=== PATIENT | female | born 1970 | race Caucasian/White ===

== ENCOUNTER 2023-12-31 07:34 | Outpatient (AMB) | payer OTHER, SELFPAY ==
--- NOTE | 2023-12-31 07:42 | MHC.PC.OV ---
Vital Signs 12/31/23 07:50 Height 5 ft 2 in Weight 198 lb BMI 36.2 BP 124/80 Blood Pressure Location Lt brachial Position Sitting Pulse 77 Pulse Source Pulse Oximeter Pulse Oximetry (%) 99 Oxygen Delivery Method Room Air Intake Visit Reasons: New patient-est care/menopause Intake Note: Pt is here today to est care Allergies No Known Allergies [No Known Allergies*] Allergy (Unverified 12/31/23 07:46) Medication List - Last Reconciled 12/31/23 by Melissa Carrasco MD cholecalciferol (vitamin D3) 50 mcg PO DAILY citalopram 20 mg PO DAILY levothyroxine 75 mcg PO DAILY multivitamin 1 tab PO DAILY ustekinumab (Stelara) 90 mg subcut Q8W Tobacco use date assessed: 12/31/23 Dental Screening Dental Screen Date: 12/31/23 Did you have a dental visit in the last 12 months?: Yes Did you have a dental problem in the last 6 months where you did not have access to dental care?: No Was dental information given to patient?: Patient has dentist HPI New patient-est care/menopause HPI Details Pt presents for [employer] PE. Pt c/o chronic R lateral thigh pain and LBP for 1 year the pain is worse when patient is trying to walk and she stopped exercising a year ago. Patient denies any injury. Past medical history includes hypothyroidism and chronic depression and autism. She is established with psychiatric prescriber. Patient follows up with the GI for a history of ulcerative colitis controlled on Stelara. [facility] Social History (Updated 12/31/23 @ 09:27 by Melissa Carrasco MD) Household Members Other:: no children disabled works part-time Housing: House Patient Tobacco Use Status: Never used Tobacco e-Cigarette/Vaping Use: Never Used service: No Current occupational status: employed Cognitive needs: No Hearing needs: No Vision needs: Yes Questionnaire PHQ-9 Over the last 2 weeks, how often have you been bothered by any of the following problems? 1. Little interest or pleasure in doing things: not at all 2. Feeling down, depressed, or hopeless: not at all 3. Trouble falling or staying asleep, or sleeping too much: not at all 4. Feeling tired or having little energy: not at all 5. Poor appetite or overeating: not at all 6. Feeling bad about yourself - or that you are a failure or have let yourself or your family down: not at all 7. Trouble concentrating on things, such as reading the newspaper or watching television: not at all 8. Moving or speaking so slowly that other people could have noticed. Or the opposite - being so fidgety or restless that you have been moving around a lot more than usual: not at all 9. Thoughts that you would be better off or of hurting yourself in some way: not at all Total score: 0 Depression Screening Interpretation: Negative Depression Screening Done: Yes 89212 - PHQ-9 Billing: Yes Source: Developed by Drs. Ernie Pereira, Brittni Johnson, Donny Kc and colleagues, with an educational javi from [employer]. Thrive Questionnaire Date Thrive assessed: 12/31/23 I am a: Patient What is your living situation today?: I have a steady place to live Within the past 12 months, did the food you bought not last and you didn't have the money to get more?: Never true Within the past 12 months, did you worry whether your food would run out before you got money to buy more?: Never true Do you have trouble paying for medicines?: No Do you have trouble getting transportation to medical appointments?: No Do you have trouble paying your heating and electricity bill?: No Do you have trouble taking care of your child, family member or friend?: No Do you have trouble with day-to-day activities such as bathing, preparing meals, shopping, managing finances, etc.?: No Are you currently unemployed and looking for a job?: No Are you interested in more education?: No THRIVE Score: 0 AUDIT C Alcohol Use Questionnaire (AUDIT-C) 1. How often do you have a drink containing alcohol?: Monthly or less 2. How many drinks containing alcohol do you have on a typical day when you are drinking?: 1 or 2 3. How often do you have six or more drinks on one occasion?: Never Total Score: 1 MUNDO-7 AMB Questionnaire MUNDO-7 Date MUNDO - 7 assessed: 12/31/23 Feeling nervous, anxious, or on edge: 0 = Not at all Not being able to stop or control worryin = Not at all Worrying too much about different things: 0 = Not at all Trouble relaxin = Not at all Being so restless that it is hard to sit still: 0 = Not at all Becoming easily annoyed or irritable: 0 = Not at all Feeling afraid as if something awful might happen: 0 = Not at all Total MUNDO-7 score (0-4 normal; 5-9 mild; 10-14 moderate; 15-21 severe): 0 Source: Developed by Drs. Ernie Pereira, Brittni Johnson, Donny Kc and colleagues, with an educational javi from [employer]. Review of Systems Const All systems reviewed & are unremarkable except as noted in HPI and below Reports no additional complaints Eyes Reports no additional complaints ENT Reports no additional complaints Card Reports no additional complaints Resp Reports no additional complaints GI Reports no additional complaints Reports no additional complaints Physical exam (Primary Care) Vital Signs: Last Vital Signs Pulse 77 12/31/23 07:50 BP 124/90 H 12/31/23 07:50 Pulse Ox 99 12/31/23 07:50 Oxygen Delivery Method Room Air 12/31/23 07:50 BMI result Body Mass Index 36.2 Tobacco/Smoking Status: Tobacco use Status Tobacco use date assessed 12/31/23 12/31/23 07:52 Patient Tobacco Use Status Never used Tobacco 12/31/23 07:52 e-Cigarette/Vaping Use Never Used 12/31/23 07:52 PHQ-9: PHQ-9 Score PHQ-9: Total score 0 12/31/23 07:53 Depression Screening Interpretation: Negative Thrive Assessment: Date of Thrive Assessment Date Thrive assessed 12/31/23 12/31/23 07:53 Const General: no acute distress HENMT Head: Yes normal to inspection Ears: hearing grossly normal bilaterally General nose exam: Normal external nose present Face and sinus: Yes normal facial exam Mouth: Normal oral and palatal mucosa present Throat: Yes posterior oropharynx normal Eyes General: appearance normal, both eyes and all related structures Neck Neck: Yes no lymphadenopathy and Yes supple Resp Effort & Inspection: normal respiratory effort Auscultation: clear to auscultation bilaterally Cardio Rhythm: regular rhythm Heart sounds: S1 normal heart sound present and S2 normal heart sound present Extrem Other: There is reproducible tenderness in the right trochanteric area, decreased range of motion of the right hip, straight leg rising 90 degrees bilaterally, deep tendon reflexes 2+ bilaterally Assessment and Plan Assessment & Plan (1) Annual physical exam: Code(s): Z00.00 - Encounter for general adult medical examination without abnormal findings Plan: Well-balanced diet regular exercise weight loss discussed with the patient. She will call [facility] to schedule mammogram. She is established with GI and will have a colonoscopy this year (2) Hx of colonoscopy: Comment: 2020 normal, needs q 3 yrs GI in [facility] for UC Code(s): Z98.890 - Other specified postprocedural states (3) Ulcerative colitis: Comment: Controlled on Stelara Code(s): K51.90 - Ulcerative colitis, unspecified, without complications (4) Hx of screening mammography: Comment: Veronique Code(s): Z92.89 - Personal history of other medical treatment Plan: Patient will schedule an appointment at [facility] (5) Right hip pain: Code(s): M25.551 - Pain in right hip (6) Hypothyroidism: Code(s): E03.9 - Hypothyroidism, unspecified Plan: Continue levothyroxine patient will return for fasting labs including TSH (7) Right hip pain: Code(s): M25.551 - Pain in right hip Plan: For chronic right hip pain x-ray will be obtained. patient will be referred for cortisone injection for right trochanteric bursitis to orthopedic surgeon and we will start physical therapy. Follow-up in 2 (8) Normal pelvic exam: Comment: 2022 negative pap Code(s): Z01.419 - Encounter for gynecological examination (general) (routine) without abnormal findings Orders: Orders Vitamin D 25-OH Total Today E03.9 - Hypothyroidism, unspecified, K51.90 - Ulcerative colitis, unspecified, without complications, Z00.00 - Encounter for general adult medical examination without abnormal findings Vitamin B12 and Folate Today E03.9 - Hypothyroidism, unspecified, K51.90 - Ulcerative colitis, unspecified, without complications, Z00.00 - Encounter for general adult medical examination without abnormal findings MM screening mammo BI Today Z12.31 - Encounter for screening mammogram for malignant neoplasm of breast XR hip RT w PEL1V Today M25.551 - Pain in right hip Comprehensive [place]. Panel Fast Today E03.9 - Hypothyroidism, unspecified, K51.90 - Ulcerative colitis, unspecified, without complications, Z00.00 - Encounter for general adult medical examination without abnormal findings Complete Blood Count Auto Diff Today E03.9 - Hypothyroidism, unspecified, K51.90 - Ulcerative colitis, unspecified, without complications, Z00.00 - Encounter for general adult medical examination without abnormal findings TSH reflex Free T4 Today E03.9 - Hypothyroidism, unspecified, K51.90 - Ulcerative colitis, unspecified, without complications, Z00.00 - Encounter for general adult medical examination without abnormal findings Lipid Panel Today E03.9 - Hypothyroidism, unspecified, K51.90 - Ulcerative colitis, unspecified, without complications, Z00.00 - Encounter for general adult medical examination without abnormal findings PT Evaluation and Treatment Today M25.551 - Pain in right hip Referrals Orthopedics Referral M25.551 - Pain in right hip Coding Level of Care Code New Pt Prev Care 40-64y(05171) Diagnoses Annual physical exam Z00.00 Hx of colonoscopy Z98.890 Ulcerative colitis K51.90 Hx of screening mammography Z92.89 Right hip pain M25.551 Hypothyroidism E03.9 Normal pelvic exam Z01.419
[2023-12-31 07:50] VITALS: BP 124/80; PULSE 77; O2SAT 99; BMI 36.2
== END 2023-12-31 08:50 | disposition home or self-care (01) ==
PROVIDERS: PCP Internal Medicine; Visit Provider Internal Medicine
DX: Z00.00 Encounter for general adult medical examination without abnormal findings (principal); Z98.890 Other specified postprocedural states; K51.90 Ulcerative colitis, unspecified, without complications; Z92.89 Personal history of other medical treatment; M25.551 Pain in right hip; E03.9 Hypothyroidism, unspecified; Z01.419 Encounter for gynecological examination (general) (routine) without abnormal findings
CPT/HCPCS: 99386

== ENCOUNTER 2024-01-06 07:39 | Outpatient (REF) | payer OTHER, SELFPAY ==
[2024-01-06 10:31] LABS: MANUAL DIFF FLAG NO
[2024-01-06 10:46] LABS: Basophils Absolute Auto 0.1 X10*3/uL (0.0-0.2); Basophils Percent Auto 1.5 % (0-2); Eosinophils Absolute Auto 0.2 X10*3/uL (0.0-0.4); Eosinophils Percent Auto 2.9 % (0-4); Hematocrit 41.1 % (37.0-47.0); Hemoglobin 13.5 g/dl (12.0-16.0); Imm Gran Abs Auto 0.01 X10*3/uL (0.00-0.03); Imm Gran Pct Auto 0.2 % (0.0-0.4); Lymphocytes Absolute Auto 2.6 X10*3/uL (1.2-4.9); Lymphocytes Percent Auto 41.3 % (20-40); Mean Corpuscular HGB Conc 32.8 g/dl (31.0-35.0); Mean Corpuscular Hemoglobin 29.2 pg (27.0-33.0); Mean Platelet Volume 10.8 fL (9.4-12.3); Monocytes Absolute Auto 0.6 X10*3/uL (0.1-1.2); Monocytes Percent Auto 9.5 % (2-11); Neutrophils Absolute Auto 2.8 x10*3/uL (2.0-8.3); Neutrophils Percent Auto 44.6 % (45-73); Platelet Count 377 X10*3/uL (160-400); Red Blood Count 4.62 X10*6/uL (4.20-5.50); Red Cell Distribution Width 13.4 % (11.0-16.0); White Blood Count 6.2 X10*3/uL (4.8-10.8)
[2024-01-06 11:30] LABS: Anion Gap 10 (12-20); Carbon Dioxide 26 mmol/L (22-29); Chloride 111 mmol/L (96-108); Sodium 143 mmol/L (135-145)
[2024-01-06 11:31] LABS: Alanine Aminotransferase 41 U/L (0-31); Albumin Level 4.1 g/dL (3.5-5.0); Alkaline Phosphatase 62 U/L (39-117); Aspartate Amino Transferase 28 U/L (5-31); Bilirubin Total 0.3 mg/dL (0.0-1.0); Calcium 8.8 mg/dL (8.4-10.2); Cholesterol 152 mg/dL (<200); Estimated Glomerular Filt Rate > 60; Glucose Fasting 101 mg/dL (60-99); HDL Cholesterol 55 mg/dL (>40); LDL Cholesterol Calculated 85 mg/dL (<100); Total Protein 7.2 g/dL (6.5-8.0); Triglycerides 60 mg/dL (<150)
[2024-01-06 11:33] LABS: Folate 14.5 ng/mL (> or = 4.0); Vitamin B12 314 pg/mL (200-900)
[2024-01-06 11:40] LABS: TSH reflex Free T4 2.59 uIU/mL (0.32-4.0); Vitamin D 25-OH Total 43.8 ng/mL (>30)
[2024-01-06 11:49] LABS: Blood Urea Nitrogen 10 mg/dL (9-16)
== END 2024-01-06 07:40 | disposition home or self-care (01) ==
LOC: HO.HMGCLDS 07:39
PROVIDERS: PCP Internal Medicine; Visit Provider Internal Medicine
DX: Z00.00 Encounter for general adult medical examination without abnormal findings (principal); E03.9 Hypothyroidism, unspecified; K51.90 Ulcerative colitis, unspecified, without complications
CPT/HCPCS: 36415; 80053; 80061; 82306; 82607; 82746; 84443; 85025

== ENCOUNTER 2024-02-11 10:08 | Outpatient (REF) | payer OTHER, SELFPAY ==
--- NOTE | ~2024-02-11 | XR_ITS ---
EXAMINATION: XR HIP, RIGHT CLINICAL INFORMATION: Pain in right hip. COMPARISON: None available. TECHNIQUE: 2 views of the right hip. Single view of the pelvis. FINDINGS: Right Hip and Pelvis: The bones, joints and soft tissues about the right hip and pelvis are normal. No arthrosis. Surrounding soft tissues normal. XR/XR hip RT min 2V IMPRESSION: Normal right hip and pelvis.
== END 2024-02-11 10:09 | disposition home or self-care (01) ==
LOC: HO.HOSX 10:08
PROVIDERS: Visit Provider Physician Assistant
DX: M70.61 Trochanteric bursitis, right hip (principal); M16.11 Unilateral primary osteoarthritis, right hip
CPT/HCPCS: 20610; 73502; J1010

== ENCOUNTER 2024-02-11 10:10 | Outpatient (AMB) | payer OTHER, SELFPAY ==
[2024-02-11 10:11] VITALS: BMI 36.2
--- NOTE | 2024-02-11 10:11 | A.OFFVIS_ITS ---
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 Patient reports that she has had ongoing pain for about 1 year now. She has had no previous therapies. She does not have pain all the time but she has sharp pain with certain movements such as adduction. Occasionally she will take a Tylenol with mild relief. She is interested in trying an injection for her symptoms. 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 She was seen by her PCP who referred her to our office. She states she has constant pain in her hip and experiences a sharp pain with certain movements such as adduction. Her pain is aggravated with am bulation. She occasionally takes Tylenol with mild relief. She is interested in having a cortisone injection. She does not have a history of diabetes. 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 - [employer] Cognitive needs: No Hearing needs: No Vision needs: Yes Review of Systems Const All systems reviewed & are unremarkable except as noted in HPI and below Physical Exam Vital Signs: BMI result Body Mass Index 36.2 Const General: cooperative, healthy appearing, comfortable, no acute distress, well developed and alert Orientation/consciousness: patient oriented x3 HEENT Head: Yes normal to inspection, Yes normocephalic and Yes atraumatic Eyes General: appearance normal, both eyes and all related structures Resp Effort & Inspection: normal respiratory effort and able to speak in complete sentences Cardio Rate: regular rate Peripheral pulses: Peripheral pulses 2+ throughout GI Palpation (GI): Soft to palpation Skin Lesions: no lesions Rashes: no rashes Neuro General: patient oriented x3 Extrem Other: Right hip: Normal to inspection. No pain with ROM of the hip. Pain along the greater trochanter. No pain with hip flexion or abduction. Negative tenderness along the SI joint, Negative SLR. NVI. Office Procedures Joint Injection/Drain Joint Injection/Drain Details: Right trochanteric bursa Prep: site was prepped using aseptic technique, ethochloride spray was applied and injection warnings given Injected: 80 mg of, DepoMedrol, with 8 mL of and 1% plain lidocaine Procedure: The patient tolerated the procedure well and there was some relief with the local anesthesia Coding 41080 - Glenohumeral/Tronchanteric Bursa/Intraarticular Procedure code (CPT) selection complete Results Reviewed Results Reviewed: Xrays were obtained in the office today and personally reviewed by me of the right hip show mild oa Assessment & Plan Assessment & Plan (1) Trochanteric bursitis, right hip: Code(s): M70.61 - Trochanteric bursitis, right hip Category: Medical (2) Osteoarthritis of right hip: Code(s): M16.11 - Unilateral primary osteoarthritis, right hip Category: Medical Plan We discussed options today, which include steroid injection. The patient did consent to move forward with the right hip injection, which was tolerated well. I recommended rest, ice, and elevation and OTC anti-inflammatories as needed for discomfort. She was also given a course of physical therapy in the office today. If symptoms persist or worsen over the next 6-8 weeks, patient will contact the office, otherwise follow-up as needed. ? Orders: Orders XR hip RT min 2V Today M25.551 - Pain in right hip PT Evaluation and Treatment Today M16.11 - Unilateral primary osteoarthritis, right hip, M70.61 - Trochanteric bursitis, right hip Patient Instructions: Scribed for Gabby Patricia PA-C, by saray Mendiola scribe, on 02/11/2024 at 10:15 AM EST.? I, Gabby Patricia PA-C, have personally reviewed and agree with the information entered by the scribe. Coding Level of Care Code New Pt Level 3 (10549) Diagnoses Trochanteric bursitis, right hip M70.61 Osteoarthritis of right hip M16.11 CPT Codes Coding - Joint 7: 85743 - Glenohumeral/Tronchanteric Bursa/Intraarticular ([id number])
== END 2024-02-11 10:58 | disposition home or self-care (01) ==
LOC: HO.HOS 10:10
PROVIDERS: PCP Internal Medicine; Visit Provider Physician Assistant
DX: M70.61 Trochanteric bursitis, right hip (principal); M16.11 Unilateral primary osteoarthritis, right hip
CPT/HCPCS: 20610; 99203

== ENCOUNTER 2024-04-05 09:15 | Outpatient (AMB) | payer OTHER, SELFPAY ==
--- NOTE | 2024-04-05 10:50 | AM.OFFWIN_ITS ---
Intake Vital Signs 04/05/24 10:53 Height 5 ft 2 in Weight 198 lb BMI 36.2 BP 118/78 Blood Pressure Location Lt brachial Position Sitting Pulse 81 Pulse Source Pulse Oximeter Pulse Oximetry (%) 98 Oxygen Delivery Method Room Air Intake Visit Reasons: EP-rt arm swollen bitten by wasp Intake Note: Patient here for wasp bite that happened on friday and was slightly swollen but now it has become very red, swollen and itchy. Patient Tobacco Use Status: Never used Tobacco Allergies No Known Allergies [No Known Allergies*] Allergy (Unverified 04/05/24 10:54) Do you need a note to return to daycare/school/sports/work: No HPI HPI Comments History of Present Illness Details Patient is a 53-year-old female complaining of a wasp sting to her right forearm approximately 36 hours ago. She states that it was immediately red and swollen and it is getting more itchy, it is also warm. She denies any pain to the area, she denies any elbow pain and has full range of motion. 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 Cognitive needs: No Hearing needs: No Vision needs: Yes Review of Systems Const All systems reviewed & are unremarkable except as noted in HPI and below Physical Exam Vital Signs: Last Vital Signs Pulse 81 04/05/24 10:53 BP 118/78 04/05/24 10:53 Pulse Ox 98 04/05/24 10:53 Oxygen Delivery Method Room Air 04/05/24 10:53 BMI result Body Mass Index 36.2 Const General: cooperative, healthy appearing, comfortable, no acute distress and well developed Orientation/consciousness: patient oriented x3 Limitations: no limitations HEENT Head: Yes normal to inspection Eyes General: appearance normal, both eyes and all related structures Neck Neck: Yes normal visual inspection and Yes full ROM Resp Effort & Inspection: normal respiratory effort and able to speak in complete sentences Skin Other: large area of erythema, warmth on left volar asepct of forearm, no ecchymosis, no lesions, no lacerations or abrasions noted. no TTP of lateral or medial epicondylar area, the area of redness does not extend into the elbow joint, patient has full range of motion with no pain. Neuro General: patient oriented x3 Extrem General: Yes normal to inspection Assessment & Plan Assessment & Plan (1) Local reaction to bee sting: Code(s): T63.441A - Toxic effect of venom of bees, accidental (unintentional), initial encounter Qualifiers: Encounter type: initial encounter Injury intent: accidental or unintentional Qualified Code(s): T63.441A - Toxic effect of venom of bees, accidental (unintentional), initial encounter Plan: Likely a localized reaction, educated patient that it should get better after 72 hours, gave her 1 dose of prednisone to help with the inflammation redness and itching and then gave her hydroxyzine to use as needed for itching. Educated patient on the use of hydroxyzine. Advised if after 72 hours the area gets larger or becomes painful, to come back because maybe at that point it has turned into a cellulitis. But it does not appear to be a cellulitis right now, it just appears to be a local reaction. Plan See above Orders: Orders AMB Prednisone Adult Dose Today T63.441A - Toxic effect of venom of bees, accidental (unintentional), initial encounter Medications: New prednisone 40 mg (2 x 20 mg) PO ONCE 1 tab 0RF T63.441A - Toxic effect of venom of bees, accidental (unintentional), initial encounter hydroxyzine HCl 10 mg PO QID PRN 14 tabs 0RF itching Coding Level of Care Code Est Pt Level 3 (33151) Diagnoses Local reaction to bee sting, accidental or unintentional, initial encounter T63.441A Encounter type: initial encounter Injury intent: accidental or unintentional
[2024-04-05 10:53] VITALS: BP 118/78; PULSE 81; O2SAT 98; BMI 36.2
== END 2024-04-05 11:35 | disposition home or self-care (01) ==
PROVIDERS: PCP Internal Medicine; Visit Provider Physician Assistant
DX: T63.441A Toxic effect of venom of bees, accidental (unintentional), initial encounter (principal)
CPT/HCPCS: 99213

== ENCOUNTER 2024-04-28 12:28 | Outpatient (AMB) | payer OTHER, SELFPAY ==
[2024-04-28 12:32] VITALS: BP 130/80; PULSE 84; O2SAT 98; BMI 36.2
--- NOTE | 2024-04-28 12:32 | MHC.PC.OV ---
Vital Signs 04/28/24 12:32 Height 5 ft 2 in Weight 198 lb BMI 36.2 BP 130/80 Blood Pressure Location Lt brachial Position Sitting Pulse 84 Pulse Source Pulse Oximeter Pulse Oximetry (%) 98 Oxygen Delivery Method Room Air Intake Visit Reasons: Follow Up Allergies No Known Allergies [No Known Allergies*] Allergy (Unverified 04/28/24 12:36) Tobacco use date assessed: 04/28/24 Dental Screening Dental Screen Date: 04/28/24 Did you have a dental visit in the last 12 months?: Yes Did you have a dental problem in the last 6 months where you did not have access to dental care?: No Was dental information given to patient?: Patient has dentist HPI Follow Up HPI Details Pt presents for for follow-up complaining of both legs feeling weak and achy when walking. She had cortisone injection for hip pain without relief. Patient denies numbness in lower extremities, lower back pain change in bowel bladder function, claudication. She follows up with a psychiatrist for chronic depression. hypothyroidism is stable on levothyroxine. Patient has been getting Stelara for ulcerative colitis currently in remission. 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 Cognitive needs: No Hearing needs: No Vision needs: Yes Questionnaire Thrive Questionnaire Date Thrive assessed: 04/25/24 I am a: Patient What is your living situation today?: I have a steady place to live Within the past 12 months, did the food you bought not last and you didn't have the money to get more?: Never true Within the past 12 months, did you worry whether your food would run out before you got money to buy more?: Never true Do you have trouble paying for medicines?: No Do you have trouble getting transportation to medical appointments?: No Do you have trouble paying your heating and electricity bill?: No Do you have trouble taking care of your child, family member or friend?: No Do you have trouble with day-to-day activities such as bathing, preparing meals, shopping, managing finances, etc.?: No Are you interested in more education?: No Please select the resources that you would like help with: None Currently or been in a relationship where the following occur: No concerns reported THRIVE Score: 0 AUDIT C Alcohol Use Questionnaire (AUDIT-C) 1. How often do you have a drink containing alcohol?: Monthly or less 2. How many drinks containing alcohol do you have on a typical day when you are drinking?: 1 or 2 3. How often do you have six or more drinks on one occasion?: Never Total Score: 1 MUNDO-7 AMB Questionnaire MUNDO-7 Date MUNDO - 7 assessed: 12/31/23 Feeling nervous, anxious, or on edge: 1 = Several days Not being able to stop or control worryin = Several days Worrying too much about different things: 1 = Several days Trouble relaxin = Several days Being so restless that it is hard to sit still: 0 = Not at all Becoming easily annoyed or irritable: 0 = Not at all Feeling afraid as if something awful might happen: 0 = Not at all Total MUNDO-7 score (0-4 normal; 5-9 mild; 10-14 moderate; 15-21 severe): 4 Source: Developed by Drs. Ernie Pereira, Brittni Johnson, Donny Kc and colleagues, with an educational javi from [employer]. Review of Systems Const All systems reviewed & are unremarkable except as noted in HPI and below ENT Reports no additional complaints Card Reports no additional complaints Resp Reports no additional complaints GI Reports no additional complaints Reports no additional complaints Physical exam (Primary Care) Vital Signs: Last Vital Signs Pulse 84 04/28/24 12:32 BP 130/80 04/28/24 12:32 Pulse Ox 98 04/28/24 12:32 Oxygen Delivery Method Room Air 04/28/24 12:32 BMI result Body Mass Index 36.2 Tobacco/Smoking Status: Tobacco use Status Tobacco use date assessed 04/28/24 04/28/24 12:38 Patient Tobacco Use Status Never used Tobacco 04/28/24 12:34 e-Cigarette/Vaping Use Never Used 04/28/24 12:34 Thrive Assessment: Date of Thrive Assessment Date Thrive assessed 04/25/24 04/28/24 12:34 Currently or been in a relationship where the following occur: No concerns reported Const General: no acute distress HENMT Head: Yes normal to inspection Eyes General: appearance normal, both eyes and all related structures Resp Effort & Inspection: normal respiratory effort Auscultation: clear to auscultation bilaterally Cardio Rhythm: regular rhythm Heart sounds: S1 normal heart sound present and S2 normal heart sound present GI Inspection: Yes normal to inspection Palpation (GI): Soft to palpation Percussion: Yes normal to percussion Neuro Cranial nerves: Yes CN's II-XII intact bilaterally Motor exam (neuro): 5/5 motor strength present throughout Romberg Test: Negative Coding Level of Care Code Est Pt Level 4 (80841) Diagnoses Ulcerative colitis K51.90 Hypothyroidism E03.9 Annual physical exam Z00.00 Hx of colonoscopy Z98.890 Leg pain, bilateral M79.604; M79.605 Assessment & Plan Assessment & Plan (1) Ulcerative colitis: Comment: Controlled on Stelara Code(s): K51.90 - Ulcerative colitis, unspecified, without complications Category: Medical Plan: Follow-up with GI (2) Hypothyroidism: Code(s): E03.9 - Hypothyroidism, unspecified Category: Medical Plan: Continue levothyroxine check TSH (3) Annual physical exam: Code(s): Z00.00 - Encounter for general adult medical examination without abnormal findings Category: Medical Plan: Return for physical in DECEMBER (4) Hx of colonoscopy: Comment: 2020 normal, needs q 3 yrs GI in [facility] for UC Code(s): Z98.890 - Other specified postprocedural states Category: Surgical Plan: Follow-up with GI (5) Leg pain, bilateral: Code(s): M79.604 - Pain in right leg; M79.605 - Pain in left leg Category: Medical Plan: Check sed rate CPK level and TSH. Patient was advised to increase physical activity start using stationary bike at least 10 minutes every day Orders: Orders Erythrocyte Sedimentation Rate Today M79.604 - Pain in right leg, M79.605 - Pain in left leg Creatine Kinase Total Today M79.604 - Pain in right leg, M79.605 - Pain in left leg TSH reflex Free T4 Today E03.9 - Hypothyroidism, unspecified
== END 2024-04-28 13:02 | disposition home or self-care (01) ==
PROVIDERS: PCP Internal Medicine; Visit Provider Internal Medicine
DX: K51.90 Ulcerative colitis, unspecified, without complications (principal); E03.9 Hypothyroidism, unspecified; Z00.00 Encounter for general adult medical examination without abnormal findings; Z98.890 Other specified postprocedural states; M79.604 Pain in right leg; M79.605 Pain in left leg

== ENCOUNTER → 2024-04-28 12:28 | Outpatient (BNVA) | payer OTHER, SELFPAY | PROVIDERS: PCP Internal Medicine; Visit Provider Internal Medicine ==

== ENCOUNTER 2024-04-28 13:05 | Outpatient (REF) | payer OTHER, SELFPAY ==
[2024-04-28 16:50] LABS: TSH reflex Free T4 2.63 uIU/mL (0.32-4.0)
[2024-04-28 17:11] LABS: Erythrocyte Sedimentation Rate 18 MM/HR (0-20)
== END 2024-04-28 13:06 | disposition home or self-care (01) ==
LOC: HO.HMGCLDS 13:05
PROVIDERS: PCP Internal Medicine; Visit Provider Internal Medicine
DX: M79.604 Pain in right leg (principal); M79.605 Pain in left leg; E03.9 Hypothyroidism, unspecified
CPT/HCPCS: 36415; 82550; 84443; 85652

== ENCOUNTER 2024-06-02 10:00 | Outpatient (RCR) | payer OTHER, SELFPAY ==
--- NOTE | 2024-05-13 14:09 | MHC.PT.EP ---
[facility] [place] [facility] [place] [facility] [place] [facility] [address] Kim Kurtz [address] [phone] F: [phone] F: [phone] F: [phone] F: [phone] Physical Therapy Plan of Care Date of Evaluation: 05/13/24 Date of Surgery: Diagnosis: R hip OA, trochanteric bursitis Assessment: Patient is a 53 year old R handed female who presents with s/s consistent with R hip OA, trochanteric bursitis, R hip pain. She is retired but does like to be active in the community daily. Patient past medical history includes OA and ulcerative colitis. Current impairments include pain, posture, ROM, strength, activity tolerance and functional mobility. Functional limitations include decreased ability to sleep, walk, stand, bend, squat, negotiate stairs and be active in the community. Patient is motivated with good rehab potential. Skilled PT will address impairments and functional limitations in order to achieve goals. 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 Manual therapy to restore motion and function. Therapeutic exercise to improve strength and flexibility. Neuromuscular re-education for posture and balance. Therapeutic activities to return to functional activities of daily living. Electronically signed by: Denny Boyle, PT Please sign and return to therapist. Thank you for your referral.
--- NOTE | 2024-06-02 10:33 | MHC.PT.EP ---
[facility] [place] [facility] [place] [facility] [place] [facility] [address] Kim Kurtz [address] [phone] F: [phone] F: [phone] F: [phone] F: [phone] Physical Therapy Plan of Care Date of Evaluation: 05/13/24 Date of Surgery: Diagnosis: R hip OA, trochanteric bursitis Assessment: Patient is a 53 year old R handed female who presents with s/s consistent with R hip OA, trochanteric bursitis, R hip pain. She is retired but does like to be active in the community daily. Patient past medical history includes OA and ulcerative colitis. Current impairments include pain, posture, ROM, strength, activity tolerance and functional mobility. Functional limitations include decreased ability to sleep, walk, stand, bend, squat, negotiate stairs and be active in the community. Patient is motivated with good rehab potential. Skilled PT will address impairments and functional limitations in order to achieve goals. 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 Manual therapy to restore motion and function. Therapeutic exercise to improve strength and flexibility. Neuromuscular re-education for posture and balance. Therapeutic activities to return to functional activities of daily living. Electronically signed by: Denny Boyle, PT Please sign and return to therapist. Thank you for your referral.
--- NOTE | 2024-10-15 08:42 | MHC.PT.DC ---
[facility] [place] Office [place] [facility] [place] [facility] [address] Kim Kurtz [address] [phone] F: [phone] F: [phone] F: [phone] F: [phone] Physical Therapy Discharge Report Diagnosis: R hip OA, trochanteric bursitis Date of Surgery: Date of Evaluation: 05/13/24 Date of Discharge: 07/08/24 Treatments to Date: 4 Cancellations to Date: No Shows to Date: Discharge Status: Independent with HEP Patient Elected to Stop Discharge Summary: 06/02/24: pt notes that she is feeling the same and that she isn't getting better. She notes she also has a lot going on. We will d/c to HEP at this time as it is the patients preference. 05/24/24: pt progressing well with skilled PT. she does still have pain but activity tolerance is improved. She did require encouragement due to the pain she is still experiencing. 05/17/24: pt progressing well with HEP. added standing hip today. progress as tolerated and update HEP nv. Patient is a 53 year old R handed female who presents with s/s consistent with R hip OA, trochanteric bursitis, R hip pain. She is retired but does like to be active in the community daily. Patient past medical history includes OA and ulcerative colitis. Current impairments include pain, posture, ROM, strength, activity tolerance and functional mobility. Functional limitations include decreased ability to sleep, walk, stand, bend, squat, negotiate stairs and be active in the community. Patient is motivated with good rehab potential. Skilled PT will address impairments and functional limitations in order to achieve goals. Electronically signed by: Denny Boyle, PT Please sign and return to therapist. Thank you for your referral.
== END 2024-10-15 08:42 | disposition home or self-care (01) ==
LOC: HO.PTCHIC 10:00
PROVIDERS: PCP Internal Medicine; Visit Provider Physician Assistant
DX: M70.61 Trochanteric bursitis, right hip (principal); M16.11 Unilateral primary osteoarthritis, right hip
CPT/HCPCS: 97110; 97162

== ENCOUNTER 2024-08-04 12:23 | Outpatient (AMB) | payer OTHER, SELFPAY ==
[2024-08-04 12:36] VITALS: BP 114/72; PULSE 77; O2SAT 97; BMI 36.6
--- NOTE | 2024-08-04 12:36 | MHC.PC.OV ---
Vital Signs 08/04/24 12:36 Height 5 ft 2 in Weight 200 lb BMI 36.6 BP 114/72 Blood Pressure Location Lt brachial Position Sitting Pulse 77 Pulse Source Pulse Oximeter Pulse Oximetry (%) 97 Oxygen Delivery Method Room Air Intake Visit Reasons: Ear check Intake Note: Pt is here today for a sick visit. Pt c/o ear was in both ears and R ear feels congested and painful. Pt also states that she still has R hip pain on going. Allergies No Known Allergies [No Known Allergies*] Allergy (Unverified 08/04/24 12:37) Medication List - Last Reconciled 08/04/24 by Melissa Carrasco MD amoxicillin-pot clavulanate 875-125 mg 1 tab PO BID cholecalciferol (vitamin D3) 50 mcg PO DAILY citalopram 20 mg PO DAILY levothyroxine 75 mcg PO DAILY multivitamin 1 tab PO DAILY ustekinumab (Stelara) 90 mg subcut Q8W Tobacco use date assessed: 08/04/24 Dental Screening Dental Screen Date: 08/04/24 Did you have a dental visit in the last 12 months?: Yes Did you have a dental problem in the last 6 months where you did not have access to dental care?: No Was dental information given to patient?: Patient has dentist HPI Ear check HPI Details Patient complains of pain in the right ear sore throat body aches low-grade fever and intermittent cough for 1 week. She reports decreased hearing in both ears. Patient denies discharge from right ear. 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 1. Little interest or pleasure in doing things: not at all 2. Feeling down, depressed, or hopeless: not at all 3. Trouble falling or staying asleep, or sleeping too much: not at all 4. Feeling tired or having little energy: not at all 5. Poor appetite or overeating: several days 6. Feeling bad about yourself - or that you are a failure or have let yourself or your family down: not at all 7. Trouble concentrating on things, such as reading the newspaper or watching television: not at all 8. Moving or speaking so slowly that other people could have noticed. Or the opposite - being so fidgety or restless that you have been moving around a lot more than usual: not at all 9. Thoughts that you would be better off or of hurting yourself in some way: not at all Total score: 1 Depression Screening Interpretation: Negative Depression Screening Done: Yes 10475 - PHQ-9 Billing: Yes Source: Developed by Drs. Ernie Periera, Brittni Johnson, Donny Kc and colleagues, with an educational javi from [email or web address]. Thrive Questionnaire Date Thrive assessed: 08/04/24 I am a: Patient What is your living situation today?: I have a steady place to live Within the past 12 months, did the food you bought not last and you didn't have the money to get more?: Never true Within the past 12 months, did you worry whether your food would run out before you got money to buy more?: Never true Do you have trouble paying for medicines?: No Do you have trouble getting transportation to medical appointments?: Yes Do you have trouble paying your heating and electricity bill?: No Do you have trouble taking care of your child, family member or friend?: No Do you have trouble with day-to-day activities such as bathing, preparing meals, shopping, managing finances, etc.?: No Are you currently unemployed and looking for a job?: I choose not to answer this question Are you interested in more education?: No Please select the resources that you would like help with: Transportation Currently or been in a relationship where the following occur: No concerns reported THRIVE Score: 1 AUDIT C Alcohol Use Questionnaire (AUDIT-C) 1. How often do you have a drink containing alcohol?: Monthly or less 2. How many drinks containing alcohol do you have on a typical day when you are drinking?: 1 or 2 3. How often do you have six or more drinks on one occasion?: Never Total Score: 1 MUNDO-7 AMB Questionnaire MUNDO-7 Date MUNDO - 7 assessed: 08/04/24 Feeling nervous, anxious, or on edge: 1 = Several days Not being able to stop or control worryin = Not at all Worrying too much about different things: 0 = Not at all Trouble relaxin = Not at all Being so restless that it is hard to sit still: 0 = Not at all Becoming easily annoyed or irritable: 0 = Not at all Feeling afraid as if something awful might happen: 0 = Not at all Total MUNDO-7 score (0-4 normal; 5-9 mild; 10-14 moderate; 15-21 severe): 1 Source: Developed by Drs. Ernie Pereira, Brittni Johnson, Donny Kc and colleagues, with an educational javi from [email or web address]. MUNDO-7 Assessment Billing MUNDO-7 Assessment Tool: MUNDO-7 Assessment 89094 Review of Systems Const All systems reviewed & are unremarkable except as noted in HPI and below Reports no additional complaints Eyes Reports no additional complaints ENT Reports no additional complaints Card Reports no additional complaints Resp Reports no additional complaints GI Reports no additional complaints Physical exam (Primary Care) Vital Signs: Last Vital Signs Pulse 77 08/04/24 12:36 BP 114/72 08/04/24 12:36 Pulse Ox 97 08/04/24 12:36 Oxygen Delivery Method Room Air 08/04/24 12:36 BMI result Body Mass Index 36.6 Tobacco/Smoking Status: Tobacco use Status Tobacco use date assessed 08/04/24 08/04/24 12:40 Patient Tobacco Use Status Never used Tobacco 08/04/24 12:40 e-Cigarette/Vaping Use Never Used 08/04/24 12:40 PHQ-9: PHQ-9 Score PHQ-9: Total score 1 08/04/24 12:47 Depression Screening Interpretation: Negative Thrive Assessment: Date of Thrive Assessment Date Thrive assessed 08/04/24 08/04/24 12:40 Currently or been in a relationship where the following occur: No concerns reported Const General: no acute distress HENMT Head: Yes normal to inspection Ears: external ears normal and TM abnormal (Right) bulging, erythematous and not mobile General nose exam: Normal external nose present Face and sinus: Yes normal facial exam Eyes General: appearance normal, both eyes and all related structures Neck Neck: Yes supple and Yes lymphadenopathy (Right submandibular) Resp Effort & Inspection: normal respiratory effort Auscultation: clear to auscultation bilaterally Cardio Rhythm: regular rhythm Heart sounds: S1 normal heart sound present and S2 normal heart sound present Coding Level of Care Code Est Pt Level 3 (98080) Diagnoses Right otitis media H66.91 Additional Codes MUNDO-7 Assessment Billing - MUNDO-7 Assessment Tool: MUNDO-7 Assessment 46478 ([id number]) PHQ-9 - 38573 - PHQ-9 Billing: Yes ([id number]) Assessment & Plan Assessment & Plan (1) Right otitis media: Code(s): H66.91 - Otitis media, unspecified, right ear Category: Medical Plan: Augmentin 875 b.i.d. for 10 days is prescribed and supportive care discussed with the patient follow-up in 2 weeks Medications: New amoxicillin-pot clavulanate 875-125 mg 1 tab PO BID 20 tabs 0RF
== END 2024-08-04 13:30 | disposition home or self-care (01) ==
PROVIDERS: PCP Internal Medicine; Visit Provider Internal Medicine
DX: H66.91 Otitis media, unspecified, right ear (principal)

== ENCOUNTER → 2024-08-04 12:23 | Outpatient (BNVA) | payer OTHER, SELFPAY | PROVIDERS: PCP Internal Medicine; Visit Provider Internal Medicine | DX: H66.91 Otitis media, unspecified, right ear (principal) | CPT/HCPCS: 96127 ==

== ENCOUNTER 2024-08-14 09:04 | Outpatient (AMB) | payer OTHER, SELFPAY ==
[2024-08-14 09:08] VITALS: BP 112/70; PULSE 76; TEMP 36.6; O2SAT 98; BMI 36.6
--- NOTE | 2024-08-14 09:08 | AM.OFFWIN_ITS ---
Intake Vital Signs 08/14/24 09:08 Height 5 ft 2 in Weight 200 lb BMI 36.6 BP 112/70 Blood Pressure Location Lt brachial Position Sitting Pulse 76 Pulse Source Pulse Oximeter Temp 97.9 F Temp Source Oral Pulse Oximetry (%) 98 Intake Visit Reasons: EP rash Intake Note: pt is here for rash on forerams, was given amoxiciilin for infection and thinks this was a reaction to the amoxicillin Patient Tobacco Use Status: Never used Tobacco Allergies No Known Allergies [No Known Allergies*] Allergy (Verified 08/14/24 09:09) Do you need a note to return to daycare/school/sports/work: No HPI EP rash HPI Details Patient has rash on bilateral arms legs and abdomen. Just finished course on amoxicillin for right otitis media. She says ear pain has resolved Denies fevers or chills. Denies breathing difficulties. Denies swallowing difficulties. 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 Cognitive needs: No Hearing needs: No Vision needs: Yes Review of Systems Const Details: See HPI Physical Exam Vital Signs: Last Vital Signs Temp 97.9 F 08/14/24 09:08 Pulse 76 08/14/24 09:08 BP 112/70 08/14/24 09:08 Pulse Ox 98 08/14/24 09:08 BMI result Body Mass Index 36.6 Const General: no acute distress and well developed Nutritional Appearance: well nourished Orientation/consciousness: patient oriented x3 HEENT Head: Yes normocephalic and Yes atraumatic Eyes General: appearance normal, both eyes and all related structures Pupils: Equal, round and reactive pupils present EOM: EOMs intact bilaterally Resp Effort & Inspection: normal respiratory effort Skin Other: Fairly extensive Maculopapular rash Neuro General: patient oriented x3 and gait normal Cranial nerves: Yes Equal, round and reactive pupils present Psych Affect: normal affect Assessment & Plan Assessment & Plan (1) Rash: Code(s): R21 - Rash and other nonspecific skin eruption Plan: Appears to be amoxicillin rash. Likely not true allergy and patient has taken this before. Was being treated for right otitis media and this has resolved. Will give her a script for prednisone 40 mg daily. She can then switch to topical steroid. Has upcoming follow-up with her PCP regarding ear infection - can follow-up on [facility] at that time as well. Medications: New betamethasone dipropionate 0.05% 1 appl topical BID 14 days PRN 45 grams 1RF skin irritation prednisone 40 mg (2 x 20 mg) PO DAILY 5 days 10 tabs 0RF Coding Level of Care Code Est Pt Level 3 (91510) Diagnoses Rash R21
== END 2024-08-14 09:43 | disposition home or self-care (01) ==
PROVIDERS: PCP Internal Medicine; Visit Provider Family Medicine
DX: R21 Rash and other nonspecific skin eruption (principal)

== ENCOUNTER 2024-08-17 10:52 | Outpatient (AMB) | payer OTHER, SELFPAY ==
[2024-08-17 10:55] VITALS: BP 126/78; PULSE 88; O2SAT 97; BMI 36.2
--- NOTE | 2024-08-17 10:55 | MHC.PC.OV ---
Vital Signs 08/17/24 10:55 Height 5 ft 2 in Weight 198 lb BMI 36.2 BP 126/78 Blood Pressure Location Lt brachial Position Sitting Pulse 88 Pulse Source Pulse Oximeter Pulse Oximetry (%) 97 Oxygen Delivery Method Room Air Intake Visit Reasons: 2 week follow up Intake Note: Pt is here today for 2 weeks follow up visit. Allergies amoxicillin Allergy (Intermediate, Verified 08/17/24 11:30) Rash Medication List - Last Reconciled 08/17/24 by Melissa Carrasco MD betamethasone dipropionate 0.05% 1 appl topical BID PRN 14 days cholecalciferol (vitamin D3) 50 mcg PO DAILY citalopram 20 mg PO DAILY fluconazole 150 mg PO Q3D 2 doses levothyroxine 75 mcg PO DAILY multivitamin 1 tab PO DAILY prednisone 40 mg (2 x 20 mg) PO DAILY 5 days ustekinumab (Stelara) 90 mg subcut Q8W Tobacco use date assessed: 08/04/24 Dental Screening Dental Screen Date: 08/04/24 HPI 2 week follow up HPI Details Patient presents for the follow-up of right otitis media. She comes a course of Augmentin but developed rash while on amoxicillin. The rash resolved after treatment with prednisone. Patient reports persistent tinnitus on the right side but denies ear pain or discharge. 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 Cognitive needs: No Hearing needs: No Vision needs: Yes Questionnaire Thrive Questionnaire Date Thrive assessed: 07/30/24 I am a: Patient What is your living situation today?: I have a steady place to live Within the past 12 months, did the food you bought not last and you didn't have the money to get more?: Never true Within the past 12 months, did you worry whether your food would run out before you got money to buy more?: Never true Do you have trouble paying for medicines?: No Do you have trouble getting transportation to medical appointments?: Yes Do you have trouble paying your heating and electricity bill?: No Do you have trouble taking care of your child, family member or friend?: No Do you have trouble with day-to-day activities such as bathing, preparing meals, shopping, managing finances, etc.?: No Are you currently unemployed and looking for a job?: I choose not to answer this question Are you interested in more education?: No Please select the resources that you would like help with: Transportation Currently or been in a relationship where the following occur: No concerns reported THRIVE Score: 1 MUNDO-7 AMB Questionnaire MUNDO-7 Date MUNDO - 7 assessed: 08/04/24 Source: Developed by Drs. Ernie Pereira, Brittni Johnson, Donny Kc and colleagues, with an educational javi from [employer]. Review of Systems Const All systems reviewed & are unremarkable except as noted in HPI and below ENT Reports no additional complaints Card Reports no additional complaints Resp Reports no additional complaints GI Reports no additional complaints Physical exam (Primary Care) Vital Signs: Last Vital Signs Pulse 88 08/17/24 10:55 BP 126/78 08/17/24 10:55 Pulse Ox 97 08/17/24 10:55 Oxygen Delivery Method Room Air 08/17/24 10:55 BMI result Body Mass Index 36.2 Tobacco/Smoking Status: Tobacco use Status Tobacco use date assessed 08/04/24 08/17/24 11:00 Patient Tobacco Use Status Never used Tobacco 08/17/24 11:00 e-Cigarette/Vaping Use Never Used 08/17/24 11:00 Thrive Assessment: Date of Thrive Assessment Date Thrive assessed 07/30/24 08/17/24 11:00 Currently or been in a relationship where the following occur: No concerns reported Const General: no acute distress HENMT Head: Yes normal to inspection Ears: TM's normal bilaterally Face and sinus: Yes normal facial exam Eyes General: appearance normal, both eyes and all related structures Neck Neck: Yes no lymphadenopathy and Yes supple Resp Effort & Inspection: normal respiratory effort Auscultation: clear to auscultation bilaterally Cardio Rhythm: regular rhythm Heart sounds: S1 normal heart sound present and S2 normal heart sound present Coding Level of Care Code Est Pt Level 3 (82259) Diagnoses Right otitis media H66.91 Tinnitus H93.19 Assessment & Plan Assessment & Plan (1) Right otitis media: Code(s): H66.91 - Otitis media, unspecified, right ear Category: Medical Plan: Resolved (2) Tinnitus: Code(s): H93.19 - Tinnitus, unspecified ear Category: Medical Plan: Patient will have a hearing test Medications: New fluconazole 150 mg PO Q3D 2 tabs 0RF 2 doses
== END 2024-08-17 13:29 | disposition home or self-care (01) ==
PROVIDERS: PCP Internal Medicine; Visit Provider Internal Medicine
DX: H66.91 Otitis media, unspecified, right ear (principal); H93.19 Tinnitus, unspecified ear

== ENCOUNTER 2025-01-04 13:07 | Outpatient (AMB) | payer OTHER, SELFPAY ==
[2025-01-04 13:13] VITALS: BP 120/70; PULSE 88; RESP 20; TEMP 36.6; O2SAT 98; BMI 36.2
--- NOTE | 2025-01-04 13:13 | MHC.PC.OV ---
Vital Signs 01/04/25 13:13 Height 5 ft 2 in Weight 198 lb BMI 36.2 BP 120/70 Blood Pressure Location Lt brachial Position Sitting Respiration 20 Pulse 88 Pulse Source Pulse Oximeter Temp 97.9 F Temp Source Oral Pulse Oximetry (%) 98 Oxygen Delivery Method Room Air Intake Visit Reasons: Annual PE Intake Note: Pt is here today for PE. Allergies amoxicillin Allergy (Intermediate, Verified 01/04/25 13:16) Rash Medication List - Last Reconciled 01/04/25 by Melissa Carrasco MD betamethasone dipropionate 0.05% 1 appl topical BID PRN 14 days cholecalciferol (vitamin D3) 50 mcg PO DAILY citalopram 20 mg PO DAILY levothyroxine 75 mcg PO DAILY multivitamin 1 tab PO DAILY ustekinumab (Stelara) 90 mg subcut Q8W Tobacco use date assessed: 01/04/25 Dental Screening Dental Screen Date: 01/04/25 Did you have a dental visit in the last 12 months?: Yes Did you have a dental problem in the last 6 months where you did not have access to dental care?: No Was dental information given to patient?: Patient has dentist HPI Annual PE HPI Details Patient presents for physical PFSH Medical History Annual physical exam Hypothyroidism Autism Ulcerative colitis Surgical History Hx of colonoscopy No pertinent past surgical history Social History Household Members Other:: no children disabled works part-time Housing: House Patient Tobacco Use Status: Never used Tobacco e-Cigarette/Vaping Use: Never Used service: No Current occupational status: employed 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 1. Little interest or pleasure in doing things: not at all 2. Feeling down, depressed, or hopeless: not at all 3. Trouble falling or staying asleep, or sleeping too much: not at all 4. Feeling tired or having little energy: not at all 5. Poor appetite or overeating: several days 6. Feeling bad about yourself - or that you are a failure or have let yourself or your family down: not at all 7. Trouble concentrating on things, such as reading the newspaper or watching television: not at all 8. Moving or speaking so slowly that other people could have noticed. Or the opposite - being so fidgety or restless that you have been moving around a lot more than usual: not at all 9. Thoughts that you would be better off or of hurting yourself in some way: not at all Total score: 1 Depression Screening Interpretation: Negative Depression Screening Done: Yes 24435 - PHQ-9 Billing: Yes Source: Developed by Drs. Ernie Pereira, Brittni Johnson, Donny Kc and colleagues, with an educational javi from [employer]. Thrive Questionnaire Date Thrive assessed: 01/04/25 I am a: Patient What is your living situation today?: I have a steady place to live Within the past 12 months, did the food you bought not last and you didn't have the money to get more?: Never true Within the past 12 months, did you worry whether your food would run out before you got money to buy more?: Never true Do you have trouble paying for medicines?: No Do you have trouble getting transportation to medical appointments?: Yes Do you have trouble paying your heating and electricity bill?: No Do you have trouble taking care of your child, family member or friend?: No Do you have trouble with day-to-day activities such as bathing, preparing meals, shopping, managing finances, etc.?: No Are you currently unemployed and looking for a job?: I choose not to answer this question Are you interested in more education?: No Please select the resources that you would like help with: Transportation Currently or been in a relationship where the following occur: No concerns reported THRIVE Score: 1 AUDIT C Alcohol Use Questionnaire (AUDIT-C) 1. How often do you have a drink containing alcohol?: Monthly or less 2. How many drinks containing alcohol do you have on a typical day when you are drinking?: 1 or 2 3. How often do you have six or more drinks on one occasion?: Never Total Score: 1 MUNDO-7 AMB Questionnaire MUNDO-7 Date MUNDO - 7 assessed: 01/04/25 Feeling nervous, anxious, or on edge: 0 = Not at all Not being able to stop or control worryin = Not at all Worrying too much about different things: 0 = Not at all Trouble relaxin = Not at all Being so restless that it is hard to sit still: 0 = Not at all Becoming easily annoyed or irritable: 0 = Not at all Feeling afraid as if something awful might happen: 0 = Not at all Total MUNDO-7 score (0-4 normal; 5-9 mild; 10-14 moderate; 15-21 severe): 0 Source: Developed by Drs. Ernie Pereira, Brittni Johnson, Donny Kc and colleagues, with an educational javi from [employer]. MUNDO-7 Assessment Billing MUNDO-7 Assessment Tool: MUNDO-7 Assessment 79709 Review of Systems Const All systems reviewed & are unremarkable except as noted in HPI and below Eyes Reports no additional complaints ENT Reports no additional complaints Card Reports no additional complaints Resp Reports no additional complaints GI Reports no additional complaints Reports no additional complaints Physical exam (Primary Care) Vital Signs: Last Vital Signs Temp 97.9 F 01/04/25 13:13 Pulse 88 01/04/25 13:13 Resp 20 01/04/25 13:13 BP 120/70 01/04/25 13:13 Pulse Ox 98 01/04/25 13:13 Oxygen Delivery Method Room Air 01/04/25 13:13 BMI result Body Mass Index 36.2 Tobacco/Smoking Status: Tobacco use Status Tobacco use date assessed 01/04/25 01/04/25 13:20 Patient Tobacco Use Status Never used Tobacco 01/04/25 13:13 e-Cigarette/Vaping Use Never Used 01/04/25 13:13 PHQ-9: PHQ-9 Score PHQ-9: Total score 1 01/04/25 13:20 Depression Screening Interpretation: Negative Thrive Assessment: Date of Thrive Assessment Date Thrive assessed 01/04/25 01/04/25 13:20 Currently or been in a relationship where the following occur: No concerns reported Const General: no acute distress HENMT Head: Yes normal to inspection Face and sinus: Yes normal facial exam Throat: Yes posterior oropharynx normal Eyes General: appearance normal, both eyes and all related structures Neck Neck: Yes no lymphadenopathy and Yes supple Resp Effort & Inspection: normal respiratory effort Auscultation: clear to auscultation bilaterally Cardio Rhythm: regular rhythm Heart sounds: S1 normal heart sound present and S2 normal heart sound present GI Inspection: Yes normal to inspection Palpation (GI): Soft to palpation Percussion: Yes normal to percussion Auscultation: normal bowel sounds Coding Level of Care Code Est Pt Prev Care 40-64y(01944) Diagnoses Hypothyroidism E03.9 Annual physical exam Z00.00 Ulcerative colitis K51.90 Hx of colonoscopy Z98.890 Additional Codes MUNDO-7 Assessment Billing - MUNDO-7 Assessment Tool: MUNDO-7 Assessment 51397 ([id number]) PHQ-9 - 11899 - PHQ-9 Billing: Yes ([id number]) Assessment & Plan Assessment & Plan (1) Hypothyroidism: Code(s): E03.9 - Hypothyroidism, unspecified Category: Medical Plan: Continue levothyroxine patient will return for fasting blood work this week (2) Annual physical exam: Code(s): Z00.00 - Encounter for general adult medical examination without abnormal findings Category: Medical Plan: Well-balanced diet regular physical activity discussed with the pt. She is up-to-date with colonoscopy and mammogram. She refused Pap (3) Ulcerative colitis: Comment: Controlled on Stelara Code(s): K51.90 - Ulcerative colitis, unspecified, without complications Category: Medical Plan: Follow-up with GI (4) Hx of colonoscopy: Comment: 2020 normal, needs q 3 yrs GI in [place] [facility] for UC Code(s): Z98.890 - Other specified postprocedural states Category: Surgical Plan: Follow-up with GI Orders: Orders Comprehensive [place]. Panel Fast Today E03.9 - Hypothyroidism, unspecified, Z00.00 - Encounter for general adult medical examination without abnormal findings Complete Blood Count Auto Diff Today E03.9 - Hypothyroidism, unspecified, Z00.00 - Encounter for general adult medical examination without abnormal findings Lipid Panel Today E03.9 - Hypothyroidism, unspecified, Z00.00 - Encounter for general adult medical examination without abnormal findings TSH reflex Free T4 Today E03.9 - Hypothyroidism, unspecified, Z00.00 - Encounter for general adult medical examination without abnormal findings Lipid Panel 1 Year E03.9 - Hypothyroidism, unspecified, K51.90 - Ulcerative colitis, unspecified, without complications, Z00.00 - Encounter for general adult medical examination without abnormal findings Complete Blood Count Auto Diff 1 Year E03.9 - Hypothyroidism, unspecified, K51.90 - Ulcerative colitis, unspecified, without complications, Z00.00 - Encounter for general adult medical examination without abnormal findings Comprehensive [place]. Panel Fast 1 Year E03.9 - Hypothyroidism, unspecified, K51.90 - Ulcerative colitis, unspecified, without complications, Z00.00 - Encounter for general adult medical examination without abnormal findings TSH reflex Free T4 1 Year E03.9 - Hypothyroidism, unspecified, K51.90 - Ulcerative colitis, unspecified, without complications, Z00.00 - Encounter for general adult medical examination without abnormal findings Vitamin D 25-OH Total 1 Year E03.9 - Hypothyroidism, unspecified, K51.90 - Ulcerative colitis, unspecified, without complications, Z00.00 - Encounter for general adult medical examination without abnormal findings
== END 2025-01-04 13:36 | disposition home or self-care (01) ==
LOC: HO.HMCC 13:08
PROVIDERS: PCP Internal Medicine; Visit Provider Internal Medicine
DX: E03.9 Hypothyroidism, unspecified (principal); Z00.00 Encounter for general adult medical examination without abnormal findings; K51.90 Ulcerative colitis, unspecified, without complications; Z98.890 Other specified postprocedural states

== ENCOUNTER → 2025-01-04 13:07 | Outpatient (BNVA) | payer OTHER, SELFPAY | PROVIDERS: PCP Internal Medicine; Visit Provider Internal Medicine | DX: Z00.00 Encounter for general adult medical examination without abnormal findings (principal); E03.9 Hypothyroidism, unspecified; K51.90 Ulcerative colitis, unspecified, without complications; Z98.890 Other specified postprocedural states | CPT/HCPCS: 96127 ==

== ENCOUNTER 2025-01-17 09:26 | Outpatient (REF) | payer OTHER, SELFPAY ==
[2025-01-17 09:41] LABS: MANUAL DIFF FLAG NO
[2025-01-17 10:33] LABS: Basophils Absolute Auto 0.1 X10*3/uL (0.0-0.2); Eosinophils Absolute Auto 0.2 X10*3/uL (0.0-0.4); Eosinophils Percent Auto 2.9 % (0-4); Hematocrit 41.3 % (37.0-47.0); Hemoglobin 13.6 g/dl (12.0-16.0); Imm Gran Abs Auto 0.02 X10*3/uL (0.00-0.03); Imm Gran Pct Auto 0.3 % (0.0-0.4); Lymphocytes Absolute Auto 2.9 X10*3/uL (1.2-4.9); Lymphocytes Percent Auto 41.3 % (20-40); Mean Corpuscular HGB Conc 32.9 g/dl (31.0-35.0); Mean Corpuscular Hemoglobin 29.1 pg (27.0-33.0); Mean Corpuscular Volume 88.2 fL (80.0-98.0); Mean Platelet Volume 10.6 fL (9.4-12.3); Monocytes Absolute Auto 0.7 X10*3/uL (0.1-1.2); Monocytes Percent Auto 9.9 % (2-11); Neutrophils Absolute Auto 3.1 x10*3/uL (2.0-8.3); Neutrophils Percent Auto 44.6 % (45-73); Platelet Count 377 X10*3/uL (160-400); Red Blood Count 4.68 X10*6/uL (4.20-5.50); Red Cell Distribution Width 13.8 % (11.0-16.0)
[2025-01-17 11:24] LABS: Alanine Aminotransferase 51 U/L (0-31); Albumin Level 4.4 g/dL (3.5-5.0); Alkaline Phosphatase 61 U/L (39-117); Anion Gap 14 (12-20); Aspartate Amino Transferase 35 U/L (5-31); Bilirubin Total 0.4 mg/dL (0.0-1.0); Blood Urea Nitrogen 10 mg/dL (9-16); Calcium 9.1 mg/dL (8.4-10.2); Carbon Dioxide 21 mmol/L (22-29); Chloride 111 mmol/L (96-108); Cholesterol 151 mg/dL (<200); Estimated Glomerular Filt Rate > 60; Glucose Fasting 93 mg/dL (60-99); HDL Cholesterol 54 mg/dL (>40); LDL Cholesterol Calculated 83 mg/dL (<100); Sodium 142 mmol/L (135-145); TSH reflex Free T4 4.22 uIU/mL (0.32-4.0); Total Protein 7.1 g/dL (6.5-8.0); Triglycerides 73 mg/dL (<150)
[2025-01-17 13:20] LABS: Free T4 (Free Thyroxine) 0.95 ng/dL (0.71-1.85)
== END 2025-01-17 09:27 | disposition home or self-care (01) ==
LOC: HO.LAB 09:26
PROVIDERS: PCP Internal Medicine; Visit Provider Internal Medicine
DX: Z00.00 Encounter for general adult medical examination without abnormal findings (principal); E03.9 Hypothyroidism, unspecified
CPT/HCPCS: 36415; 80053; 80061; 84439; 84443; 85025

== ENCOUNTER 2025-07-19 09:13 | Outpatient (REF) | payer OTHER, SELFPAY ==
--- OUTSIDE RECORDS SUMMARY | 2025-07-19 09:50 | XMS_ITS | Encounter Summary ---
Author Organization [facility] Address [address] [place] [address] Phone Care Team Providers Care Child Monitor Name Role Phone Anupama Santiago DO Unavailable [phone] Zoey Krishnan DRAUGHTSMAN Unavailable [phone] Charla Styles MD Unavailable [phone] Melissa Carrasco MD Primary Care Provider [phone] Encounter Details Date Type Department Care Team (Late st Contact Info) Description 11/02/2024 Procedure Pass [facility] Endoscopy Admitting Dept Virtual Department [address] [place], [place] [id number] Social History Tobacco Use Types Packs/Day Years Used Date Smoking Tobacco: Never Smokeless Tobacco: Never Alcohol Use Standard Drinks/Week Comments Yes 0 (1 standard drink = 0.6 oz pur e alcohol) few times monthly Child or Family Care Answer Date Record ed Do you have problems with on e of the following making it difficult for you to work, study, or receive health care? No 03/26/2022 Education Answer Date Recorded Are you interested in more education? Not on oscar e 03/28/2024 Are you concerned about learning? Not on file 03/28/2024 No 03/28/2024 No 03/28/2024 Food Answer Date Recorded Within the past 6 months we worried whether our food would run out before we got money to buy more. Never True 03/26/2022 Within the past 6 months the food we bought just didn't last and we didn't have enough money to get more. Never True Residential Stability Answer Date Recor ded What is your housing situation today? I have nahed [place] 03/26/2022 How many times have you move d in the past 12 months? Zero (I did not move) 03/26/2022 Paying for Meds Answer Date Recorded Do you have trouble paying for medicines? No 03/26/2022 Paying Utility Bills Answer Date Record ed Do you have trouble paying your heating or elect ricity bill? No 03/26/2022 Transportation Answer Date Recorded Has the lack of transportati on kept you from medical appointments or from getting medications? No 03/26/2022 Unemployment Answer Date Recorded Are you currently unemployed or working on a part-time or temporary basis, and looking for work? No 03/26/2022 Digital Access Answer Date Recorded No 12/17/2022 No 12/17/2022 Reliable internet access at home? Not on file 12/17/2022 Device with a working camera? Not on file Intimate Partner Violence Answer Date R ecorded Are you denied basic needs s uch as food, clothing, or medical care? No 11/02/2024 In the past 12 months have y ou been in a relationship with a person who hurts, threatens, or tries to control you? No 11/02/2024 Are you denied basic needs s uch as food, clothing, or medical care? No 11/02/2024 In the past 12 months have y ou been in a relationship with a person who hurts, threatens, or tries to control you? No 11/02/2024 Comments No Sex and Gender Information Value Date Recorded Sex Assigned at Not on file Legal Sex Female 9:36 PM EDT Gender Identity Not on file Sexual Orientation Not on file documented as of this encounter Plan of Treatment Not on file documented as of this encounter Visit Diagnoses Not on filedocumented in this encounter Additional Health Concerns Assessment Noted Time PHQ-2 Depression Total Score: 0 12/04/19 23 3:52 PM EDT documented as of this encounter Care Teams Child Monitor Relationship Specialty Start Date End Date Melissa Carrasco MD [address] [employer] [address] PCP - General Internal Medicine 11/02/24 Anupama Santiago DO [address] [facility] [address] [place] [address] [email or web address] Historical LMR Provider 05/17/17 Zoey Krishnan CNP [address] [facility], 2nd [place] [address] [email or web address] Historical LMR Provider 05/17/17 Charla Styles MD [address] [place] [address] [address] [place] [address] [email or web address] Historical LMR Provider 05/17/17 documented as of this encounter Additional Source Comments The information contained in this document represents components of the legal health record. It is not the complete legal health record.[facility]
--- OUTSIDE RECORDS SUMMARY | 2025-07-19 09:50 | XMS_ITS | Encounter Summary ---
Author Organization [facility] Address [address] [place] [address] Phone Care Team Providers Care Or First Assist Registered Nurse Name Role Phone Charla Styles MD Primary Care Provider Sue Ackerman HOUSE SHORER Unavailable Anupama Santiago DO Unavailable Zoey Krishnan WEIGHER AND CHARGER Unavailable Tunde Nellie Nery ACCOUNT EXECUTIVE SOFTWARE SALES Unavailable Alisha Chiu MD Unavailable Ernie Bland MD Unavailable [phone] Noemi Heart HOUSE SHORER Unavailable [phone] Charla Styles MD Unavailable [phone] Antolin Mora MD Unavailable Peterson Bland MD Unavailable Peterson Tipton MD Unavailable Andrew Mckee WEIGHER AND CHARGER Primary Care Provider + Melissa Carrasco MD Primary Care Provider Encounter Details Date Type Department Care Team (Late st Contact Info) Description 10/06/2019 Ancillary Orders [facility] [address] [place], [place] [phone] Charla Styles MD 234 [facility] [address] [place] [address] [email or web address] Breast screening Social History Tobacco Use Types Packs/Day Years Used Date Smoking Tobacco: Never Smokeless Tobacco: Never Comments Unknown Sex and Gender Information Value Date Recorded Sex Assigned at Not on file Legal Sex Female 9:36 PM EDT Gender Identity Not on file Sexual Orientation Not on file documented as of this encounter Plan of Treatment Not on file documented as of this encounter Visit Diagnoses Diagnosis Breast screening Breast screening, unspecified documented in this encounter Additional Health Concerns Assessment Noted Time PHQ-2 Depression Total Score: 0 03/25/20 18 9:17 AM EDT documented as of this encounter Care Teams Or First Assist Registered Nurse Relationship Specialty Start Date End Date Charla Styles MD [address] [place] [id number] PCP - General 05/12/17 07/14/22 Andrew Mckee CNP [address] [place] [address] PCP - General Family Medicine 07/15/22 11/01/24 Melissa Carrasco MD [address] [place] [address] PCP - General Internal Medicine 11/02/24 Sue Ackerman NP [address] [place] [address] Historical LMR Provider 05/17/17 2 Anupama Santiago DO [address] [place] [address] 7 [place] [address] Historical LMR Provider 05/17/17 Zoey Krishnan, WEIGHER AND CHARGER [address] [address] Historical LMR Provider 05/17/17 Nellie Griffiths FNP [address] [place] [address] Historical LMR Provider 05/17/17 08/04/21 Alisha Chiu MD [address] [place] [address] Historical LMR Provider 05/17/17 Ernie Bland MD [address] [place] [phone] [email or web address] Historical LMR Provider 05/17/17 08/04/21 Noemi Heart, CHANG [address] [place] [address] Historical LMR Provider 05/17/17 2 Charla Styles MD [address] [place] [address] [email or web address] Historical LMR Provider 05/17/17 Antolin Mora MD [address] [place] [phone] Historical LMR Provider 05/17/17 2 Peterson Bland MD [address] [facility] [place] [phone] [email or web address] Historical LMR Provider 05/17/17 08/04/21 Peterson Tipton MD [address] [place] [address] [email or web address] Historical LMR Provider 05/17/17 08/04/21 documented as of this encounter Additional Source Comments The information contained in this document represents components of the legal health record. It is not the complete legal health record.[facility]
--- OUTSIDE RECORDS SUMMARY | 2025-07-19 09:51 | XMS_ITS | Encounter Summary ---
Author Organization [facility] Address [address] [place] [address] [place] [address] Phone Care Team Providers Care Conservation Science Officer Name Role Phone Charla Styles MD Primary Care Provider Sue Ackerman TUNNEL WORKER Unavailable Anupama Santiago DO Unavailable Zoey Krishnan MOSQUITO SPRAYER Unavailable Nellie Griffiths ATTENDANCE OFFICER Unavailable Alisha Chiu MD Unavailable Ernie Bland MD Unavailable [phone] Noemi Heart TUNNEL WORKER Unavailable [phone] Charla Styles MD Unavailable Antolin Mora MD Unavailable [phone] Peterson Bland MD Unavailable Peterson Tipton MD Unavailable [phone] Charla Styles MD Unavailable Andrew Mckee MOSQUITO SPRAYER Primary Care Provider + Melissa Carrasco MD Primary Care Provider Encounter Details Date Type Department Care Team (Late st Contact Info) Description 01/26/2019 Procedure Pass [facility] Endoscopy Admitting Dept Virtual Department 30 [place] [address] Social History Tobacco Use Types Packs/Day Years [...] documented as of this encounter Care Teams Conservation Science Officer Relationship Specialty Start Date End Date Charla Styles MD [address] [place] [address] PCP - General 05/12/17 07/14/22 Andrew Mckee CNP [address] [place] [address] PCP - General Family Medicine 07/15/22 11/01/24 Melissa Carrasco MD [address] [place] [address] PCP - General Internal Medicine 11/02/24 Sue Ackerman NP 1 [place] [address] Historical LMR Provider 05/17/17 2 Anupama Santiago DO [address] [place] [address] Historical LMR Provider 05/17/17 Zoey Krishnan CNP [address] [place] [address] [email or web address] Historical LMR Provider 05/17/17 Nellie Griffiths FNP 234 [facility], [facility] 7 [place] [address] [email or web address] Historical LMR Provider 05/17/17 08/04/21 Alisha Chiu MD [address] [place] [address], 2nd [place] [address] [email or web address] Historical LMR Provider 05/17/17 Ernie Bland MD [address] [place] [address] 7 [place] [phone] [email or web address] Historical LMR Provider 05/17/17 08/04/21 Noemi Heart NP [address] [place] [address] Historical LMR Provider 05/17/17 2 Charla Styles MD [address] [place] [address] 7 [place] [address] [email or web address] Historical LMR Provider 05/17/17 Antolin Mora MD [address] [place] [address] 7 [place] [phone] Historical LMR Provider 05/17/17 2 Peterson Bland MD [address] [place], [place] [address] [place] [phone] [email or web address] Historical LMR Provider 05/17/17 08/04/21 Peterson Tipton MD [address] [place] [address] [email or web address] Historical LMR Provider 05/17/17 08/04/21 Charla Styles MD [address] [place] [address] 7 [place] [address] [email or web address] Insurance Assigned Provider 11/28/18 07/03/19 documented as of this encounter Additional Source Comments The information contained in this document represents components of the legal health record. It is not the complete legal health record.[facility]
--- OUTSIDE RECORDS SUMMARY | 2025-07-19 09:51 | XMS_ITS | Encounter Summary ---
Author Organization [facility] Address [address] [place] [address] Phone Care Team Providers Care Barge Loader Name Role Phone Anupama Santiago DO Unavailable [phone] Zoey Krishnan [employer] GL[employer] TUBE CUTTER Unavailable [phone] Charla Styles MD Unavailable [phone] Andrew Mckee [facility] Primary Care Provider + Melissa Carrasco MD Primary Care Provider [phone] Encounter Details Date Type Department Care Team (Late st Contact Info) Description 05/22/2023 Procedure Pass [facility], [address] [address] Social History Tobacco Use Types Packs/Day Years Used Date Smoking Tobacco: Never Smokeless Tobacco: Never Alcohol Use Standard Drinks/Week Comments Yes 0 (1 standard drink = 0.6 oz pur e alcohol) occasional glass of wine Child or Family Care Answer Date Record ed Do you have problems with on e of the following making it difficult for you to work, study, or receive health care? No 03/26/2022 Education Answer Date Recorded Are you interested in help w ith more adult education (for example, completing high school, GED, job training, learning the Thai language, technical skills, or developing parenting skills)? No 03/26/2022 Food Answer Date Recorded Within the past [...] with a working camera? Not on file Comments No Sex and Gender Information Value [...] documented as of this encounter Care Teams Barge Loader Relationship Specialty Start Date End Date Andrew Mckee CNP [address] [place] [address], [facility] 7 [place] [address] PCP - General Family Medicine 07/15/22 11/01/24 Melissa Carrasco MD [address] [place] [address] PCP - General Internal Medicine 11/02/24 Anupama Santiago DO [address] [place] [address] 7 [place] [address] [email or web address] Historical LMR Provider 05/17/17 Zoey Krishnan CNP 15 [facility], [address] [place] [address] [email or web address] Historical LMR Provider 05/17/17 Charla Styles MD [address] [place] [address] 7 [place] [address] [email or web address] Historical LMR Provider 05/17/17 documented as of this encounter Additional Source Comments The information contained in this document represents components of the legal health record. It is not the complete legal health record.[facility]
--- OUTSIDE RECORDS SUMMARY | 2025-07-19 09:51 | XMS_ITS | Encounter Summary ---
Author Organization [facility] Address [address] [facility] [address] [place] [address] Phone Care Team Providers Care Communications Professional Name Role Phone Anupama aSntiago DO Unavailable Zoey Krishnan [facility] Unavailable [phone] Charla Styles MD Unavailable Andrew Mckee [facility] Primary Care Provider + Melissa Carrasco MD Primary Care Provider [phone] Encounter Details Date Type Department Care Team (Latest Contact Info) Description 07/09/2023 Transcribe Orders Virtual Department 30 [place] [address] Nellie Miller PA-C [address], [address] [place] [address] [email or web address] IBD (inflammatory bowel disease) (Primary Dx) Social History Tobacco Use Types Packs/Day Years [...] high school, GED, job training, learning the Senegalese language, technical skills, or developing parenting skills)? [...] your housing situation today? I have nahed sing 03/26/2022 How many times have you move [...] on file documented as of this encounter Results * BD DXA AXIAL (SPINE) WITH HIP (03/04/2024 11:17 AM EDT) Anatomical Region Laterality Modality Bone Density Bone Density 03/04/2024 11:1 4 AM EDT Impressions 03/04/2024 11:30 AM EDT Interpretation: Normal bone mineral density. Narrative 03/04/2024 11:30 AM EDT Referred By: NELLIE MILLER Indications: Inflammatory bowel disease (IBD) Scanner: Poliglota A with serial# of [id number] located at [facility] Bone Density Scan (DXA) 03/04/24 Details of prior DXA scans are available by clicking View Image BMD T- Z- Skeletal Site gm/cm2 score score BMD Change Since Prior Scan ------ ----- ----- PA Spine (L1-L4) 1.032 -0.10 0.90 N/A Total Hip (Left) 1.033 0.70 1.40 N/A Femoral Neck (Left) 0.933 0.80 1.80 N/A Total Hip (Right) 1.017 0.60 1.30 N/A Femoral Neck (Right) 0.892 0.40 1.40 N/A ------ ----- ----- * Denotes significant change when >= 0.022 g/cm2 for the spine, 0.027 g/cm2 for the total hip, 0.029 g/cm2 for the femoral neck. Interpretation: Normal bone mineral density. Technical Quality: Imaging of all sites was of adequate quality. FRAX: A FRAX(r) score is not provided because the patient has normal bone density. Additional Information: -World Health Organization criteria classify adults based on lowest T-score at PA spine, hip or forearm: Normal (T-score >= -1.0), Osteopenia (T-score between -1 and -2.5), or Osteoporosis (T-score <= -2.5). At [facility], T-scores are compared to peak bone density of a young white gender matched reference population. - For premenopausal women and men under the age of 50, Z-scores (comparison to age, gender, and ethnicity matched reference population) are used: Above expected range for age (Z-score >= 2.0), Within expected range of age (Z-score 1.9 to -1.9), or Below expected range for age (Z-score <= -2.0). - The Bone Health and Osteoporosis Foundation recommends that treatment be considered in men aged more than 50 years and in postmenopausal women with ANY of the following: Prior hip or vertebral fractures; T-score of <= -2.5 at the PA spine or hip; or 10 year fracture probability by FRAX of >= 3% for the hip or >= 20% for major osteoporotic fracture. - The FRAX algorithm (https://www.vanna.ac.uk/FRAX/tool.aspx) is designed to predict 10-year fracture risk in treatment-naive adults between the ages of 40 and 90. It is not intended to be used in those receiving pharmacologic osteoporosis treatment. - Including race/ethnicity in the generation of T- or Z-scores or in the FRAX calculation is complicated, and currently undergoing active review to ensure that we can give patients the best information on their risk of fracture. -Some prior studies may not be compatible with our comparison software. -Click on View Full Report to see subsequent pages with images and prior bone density results. Reviewed By: Flavio Caro on 03/04/2024 11:30:34 Procedure Note Flavio Caro MD - 03/04/2024 Referred By: NLELIE MILLER Indications: Inflammatory bowel disease (IBD) Scanner: Poliglota A with serial# of [id number] located at [facility] Bone Density Scan (DXA) 03/04/24 Details of prior DXA scans are available by clicking View Image BMD T- Z- Skeletal Site gm/cm2 score score BMD Change Since Prior Scan ------ ----- PA Spine (L1-L4) 1.032 -0.10 0.90 N/A Total Hip (Left) 1.033 0.70 1.40 N/A Femoral Neck (Left) 0.933 0.80 1.80 N/A Total Hip (Right) 1.017 0.60 1.30 N/A Femoral Neck (Right) 0.892 0.40 1.40 N/A ------ ----- * Denotes significant change when >= 0.022 g/cm2 for the spine, 0.027g/cm2 for the total hip, 0.029 g/cm2 for the femoral neck. Interpretation: Normal bone mineral density. Technical Quality: Imaging of all sites was of adequate quality. FRAX: A FRAX(r) score is not provided because the patient has normal bone density. Additional Information: -World Health Organization criteria classify adults based on lowestT-score at PA spine, hip or forearm: Normal (T-score >= -1.0), Osteopenia (T-score between -1 and -2.5), or Osteoporosis (T-score <= -2.5). At [facility], T-scores are compared to peak bone density of a young white gender matched reference population. - For premenopausal women and men under the age of 50, Z-scores(comparison to age, gender, and ethnicity matched reference population) are used:Above expected range for age (Z-score >= 2.0), Within expected range of age (Z-score 1.9 to -1.9), or Below expected range for age (Z-score <= -2.0). - The Bone Health and Osteoporosis Foundation recommends that treatment be considered in men aged more than 50 years and in postmenopausal women with ANY of the following: Prior hip or vertebral fractures; T-score of <= -2.5 at the PA spine or hip; or 10 year fracture probability by FRAX of >= 3%for the hip or >= 20% for major osteoporotic fracture. - The FRAX algorithm (https://www.vanna.ac.uk/FRAX/tool.aspx) is designed to predict 10-year fracture risk in treatment-naive adultsbetween the ages of 40 and 90. It is not intended to be used in those receiving pharmacologic osteoporosis treatment. - Including race/ethnicity in the generation of T- or Z-scores or in the FRAX calculation is complicated, and currently undergoing active review to ensure that we can give patients the best information on their risk of fracture. -Some prior studies may not be compatible with our comparison software. -Click on View Full Report to see subsequent pages with images and prior bone density results. Reviewed By: Flavio Caro on 03/04/2024 11:30:34 IMPRESSION: Interpretation: Normal bone mineral density. us Nellie Miller PA-C IMG BD BONE DENSITY DEXA Final Result documented in this encounter Visit Diagnoses Diagnosis IBD (inflammatory bowel disease)- Primary Other and unspecified noninfectious gastroenteritis and colitis IBD (inflammatory bowel disease) Other and unspecified noninfectious gastroenteritis and colitis documented in this encounter Additional Health Concerns Assessment Noted Time PHQ-2 Depression Total Score: 0 12/04/19 23 3:52 PM EDT documented as of this encounter Care Teams Communications Professional Relationship Specialty Start Date End Date Andrew Mckee CNP [address] [place] [address] [email or web address] PCP - General Family Medicine 07/15/22 11/01/24 Melissa Carrasco MD [address] [place] [address] PCP - General Internal Medicine 11/02/24 Anupama Santiago DO [address] [place] [address] [email or web address] Historical LMR Provider 05/17/17 Zoey Krishnan CNP [address] [place] [address], 2nd [place] [address] [email or web address] Historical LMR Provider 05/17/17 Charla Styles MD [address] [place] [address] (work) [email or web address] Historical LMR Provider 05/17/17 documented as of this encounter Additional Source Comments The information contained in this document represents components of the legal health record. It is not the complete legal health record.[facility]
--- OUTSIDE RECORDS SUMMARY | 2025-07-19 09:51 | XMS_ITS | Encounter Summary ---
Author Organization [facility] Address [address] [place] [address] Phone Care Team Providers Care Client Leader Name Role Phone Anupama Santiago DO Unavailable [phone] Zoey Krishnan SIGNAL APPRENTICE Unavailable [phone] Charla Styles MD Unavailable [phone] Andrew Mckee [facility] Primary Care Provider + Melissa Carrasco MD Primary Care Provider [phone] Encounter Details Date Type Department Care Team (Late st Contact Info) Description 01/06/2024 Procedure Pass [facility], [address] [address] Social History Tobacco Use Types Packs/Day Years [...] high school, GED, job training, learning the Chilean language, technical skills, or developing parenting skills)? [...] documented as of this encounter Care Teams Client Leader Relationship Specialty Start Date End Date Andrew Mckee CNP [address] [place] [address], [facility] 7 [place] [address] PCP - General Family Medicine 07/15/22 11/01/24 Melissa Carrasco MD [address] [place] [address] PCP - General Internal Medicine 11/02/24 Anupama Santiago DO [address] [place] [address] 7 [place] [address] [email or web address] Historical LMR Provider 05/17/17 Zoey Krishnan CNP 15 [facility], [address] [place] [address] [email or web address] Historical LMR Provider 05/17/17 Charla Styles MD [address] [place] [address] 7 [place] [address] [email or web address] Historical LMR Provider 05/17/17 documented as of this encounter Additional Source Comments The information contained in this document represents components of the legal health record. It is not the complete legal health record.[facility]
--- OUTSIDE RECORDS SUMMARY | 2025-07-19 09:51 | XMS_ITS | Encounter Summary ---
Author Organization [facility] Address [address] [facility] [address] [place] [address] Phone Care Team Providers Care Sba Underwriter Name Role Phone Charla Styles MD Primary Care Provider [phone] Sue Ackerman FOOD AND BEVERAGE DIRECTOR Unavailable Anupama Santiago DO Unavailable Zoey Krishnan APPLE SOLUTIONS CONSULTANT Unavailable Tunde Nellie Nery FERTILIZER SUPERVISOR Unavailable Alisha Chiu MD Unavailable Ernie Bland MD Unavailable Noemi Heart FOOD AND BEVERAGE DIRECTOR Unavailable [phone] Charla Styles MD Unavailable [phone] Antolin Mora MD Unavailable [phone] Peterson Bland MD Unavailable Peterson Tipton MD Unavailable Andrew Mckee APPLE SOLUTIONS CONSULTANT Primary Care Provider + Melissa Carrasco MD Primary Care Provider [phone] Encounter Details Date Type Department Care Team (Latest Contact Info) Description 01/18/2021 Transcribe Orders [facility]leb Dol[facility] [address] 2[address] Floor [place], [place] [id number] Denny Kwon MD [address] [place] [address] [email or web address] Ulcerative colitis with rectal bleeding, unspecified location (Primary Dx) Social History Tobacco Use Types Packs/Day Years Used Date Smoking Tobacco: Never Smokeless Tobacco: Never Alcohol Use Standard Drinks/Week Comments Yes 0 (1 standard drink = 0.6 oz pur e alcohol) rarely Comments No Sex and Gender Information Value Date Recorded Sex Assigned at Not on file Legal Sex Female 9:36 PM EDT Gender Identity Not on file Sexual Orientation Not on file documented as of this encounter Plan of Treatment Not on file documented as of this encounter Results * 25-OH vitamin D (01/18/2021 11:52 AM EDT) 25 OH VIT D (TOTAL) 30 30 - 60 ng/mL [facility] Blood 01/18/2021 11:5 2 AM EDT 01/18/2021 12:08 PM EDT us Denny Kwon MD LAB BLOOD BKR ORDERABLES Fin al Result [address] [address] * Vitamin B12 (01/18/2021 11:52 AM EDT) VITAMIN B12 353 232 - 1,245 pg/mL [facility] Blood 01/18/2021 11:5 2 AM EDT 01/18/2021 12:08 PM EDT us Denny Kwon MD LAB BLOOD BKR ORDERABLES Fin al Result [address] [address] * Ferritin (01/18/2021 11:52 AM EDT) FERRITIN 121 13 - 150 ug/L [facility] Blood 01/18/2021 11:5 2 AM EDT 01/18/2021 12:08 PM EDT us Denny Kwon MD LAB BLOOD BKR ORDERABLES Fin al Result Performing Organization Address [facility]/ZIP Co de Phone Number [address] [address] * Iron and iron binding capacity (01/18/2021 11:52 AM EDT) IRON 68 30 - 160 ug/dL [facility] IRON BINDING CAPACITY 310 228 - 428 ug/dL [facility] TRANSFERRIN SATURAT. 22 15 - 50 % [facility] Blood 01/18/2021 11:5 2 AM EDT 01/18/2021 12:08 PM EDT us Denny Kwon MD LAB BLOOD BKR ORDERABLES Fin al Result Performing Organization Address [facility]/ZIP Co de Phone Number [address] [address] * C-Reactive Protein (01/18/2021 11:52 AM EDT) C REACTIVE PROTEIN 3.4 0.0 - 4.0 mg/L [facility] Blood 01/18/2021 11:5 2 AM EDT 01/18/2021 12:08 PM EDT us Denny Kwon MD LAB BLOOD BKR ORDERABLES Fin al Result Performing Organization Address [facility]/ZIP Co de Phone Number [address] [address] * (ABNORMAL) Comprehensive metabolic panel (01/18/2021 11:52 AM EDT) SODIUM 138 133 - 146 mmol/L [facility] POTASSIUM 4.0 3.3 - 5.1 mmol/L [facility] CHLORIDE 104 96 - 108 mmol/L [facility] CO2 25 21 - 35 mmol/L [facility] BUN 8 6 - 19 mg/dL [facility] CREATININE 0.70 0.5 - 1.5 mg/dL [facility] GLUCOSE 106(H) 70 - 99 mg/dL [facility] ALBUMIN 4.1 3.9 - 4.8 g/dL [facility] TOTAL PROTEIN 7.0 6.5 - 8.0 g/dL [facility] CALCIUM 9.4 8.4 - 10.3 mg/dL [facility] ALKALINE PHOSPHATASE 65 39 - 117 U/L [facility] TOTAL BILIRUBIN 0.2 0.0 - 1.2 mg/dL [facility] AST 30 0 - 37 U/L [facility] ALT 43(H) 0 - 40 U/L [facility] GLOBULIN 2.9 1 - 4.8 g/dL [facility] EGFR 100 >59 mL/min/1.7 3m2 [facility] Comment:Estimated glomerular filtration rate calculated using the CKD-EPI equation. ANION GAP 13 10 - 20 mmol/L [facility] Blood 01/18/2021 11:5 2 AM EDT 01/18/2021 12:08 PM EDT us Denny Kwon MD LAB BLOOD BKR ORDERABLES Fin al Result Performing Organization Address City/State/[facility] Co de Phone Number [facility] [address] [place] [address] * CBC (01/18/2021 11:52 AM EDT) WBC 8.87 4.00 - 11.00 K/uL [facility] RBC 4.27 3.72 - 5.30 M/uL [facility] HGB 12.6 10.6 - 15.5 g/dL [facility] HCT 36.6 32.0 - 45.0 % [facility] PLT 369 140 - 430 K/uL [facility] MCV 85.7 78.0 - 97.0 fL [facility] MCH 29.5 25.0 - 33.0 pg [facility] MCHC 34.4 32.0 - 36.0 g/dL [facility] RDW 13.5 11.0 - 16.0 % [facility] MPV 10.4 8.4 - 12.8 fl [facility] NRBC 0.00 0 /100 WBCs [facility] ABSOLUTE NRBC 0.00 0 K/uL [facility] Blood 01/18/2021 11:5 2 AM EDT 01/18/2021 12:08 PM EDT us Denny Kwon MD LAB BLOOD BKR ORDERABLES Fin al Result [facility] [address] [place] [address] documented in this encounter Visit Diagnoses Diagnosis Ulcerative colitis with rectal bleeding, unspecified location- Primary documented in this encounter Additional Health Concerns Assessment Noted Time PHQ-2 Depression Total Score: 0 03/25/20 18 9:17 AM EDT documented as of this encounter Care Teams Sba Underwriter Relationship Specialty Start Date End Date Charla Styles MD [address] [place] [address] 7 [place] [address] [email or web address] PCP - General 05/12/17 07/14/22 Andrew Mckee CNP [address] [place] [address] 7 [place] [address] PCP - General Family Medicine 07/15/22 11/01/24 Melissa Carrasco MD [address] [place] [address] PCP - General Internal Medicine 11/02/24 Sue Ackerman NP [address] [facility] [address] Historical LMR Provider 05/17/17 2 Anupama Santiago DO [address] [place] [address] 7 [place], [place] [id number] Historical LMR Provider 05/17/17 Zoey Krishnan CNP [address] [address] Historical LMR Provider 05/17/17 Nellie Griffiths FNP [address] [place] [address] 7 [place] [address] Historical LMR Provider 05/17/17 08/04/21 Alisha Chiu MD [address] [place] [address] Historical LMR Provider 05/17/17 Ernie Bland MD [address] [place] [phone] [email or web address] Historical LMR Provider 05/17/17 08/04/21 [facility], CHANG [address] [place] [address] Historical LMR Provider 05/17/17 2 Charla Styles MD [address] [place] [address] 7 [place] [address] [email or web address] Historical LMR Provider 05/17/17 Antolin Mora MD [address] [place] [address] 7 [place] [phone] Historical LMR Provider 05/17/17 2 Peterson Bland MD [address] [facility] [address] [place] [phone] [email or web address] Historical LMR Provider 05/17/17 08/04/21 Peterson Tipton MD [address] [place] [address] [email or web address] Historical LMR Provider 05/17/17 08/04/21 documented as of this encounter Additional Source Comments The information contained in this document represents components of the legal health record. It is not the complete legal health record.[facility]
--- OUTSIDE RECORDS SUMMARY | 2025-07-19 09:51 | XMS_ITS | Encounter Summary ---
Author Organization [facility] Address [address] [facility] [address] [place] [address] Phone Care Team Providers Care Drafter Electromechanical Name Role Phone Charla Styles MD Primary Care Provider Sue Ackerman DEICER KIT ASSEMBLER Unavailable [phone] Anupama Santiago DO Unavailable Zoey Krishnan PRODUCTION SUPPORT MANAGER Unavailable Nellie Griffiths MINE INSPECTOR FEDERAL Unavailable Alisha Chiu MD Unavailable Ernie Bland MD Unavailable Noemi Heart DEICER KIT ASSEMBLER Unavailable Charla Styles MD Unavailable [phone] Antolin Mora MD Unavailable [phone] Peterson Bland MD Unavailable Peterson Tipton MD Unavailable Charla Styles MD Unavailable Andrew Mckee PRODUCTION SUPPORT MANAGER Primary Care Provider + Melissa Carrasco MD Primary Care Provider Encounter Details Date Type Department Care Team (Latest Contact Info) Description 02/22/2019 Transcribe Orders [facility] Phleb Main [address] [place] [address] Denny Kwon MD [address] [place] [address] [email or web address] Low vitamin B12 level (Primary Dx) Social History Tobacco Use Types [...] documented as of this encounter Results * Tissue transglutaminase IgA (02/22/2019 2:17 PM EDT) TTG IGA ANTIBODY 1.3 <4.0 (Negative) U/mL [facility] LAB MED/PATH [address]PERIOR Blood 02/22/2019 2:17 PM EDT 02/22/2019 2:19 PM EDT us Denny Kwon MD LAB BLOOD BKR ORDERABLES Fin al Result [facility] LAB MED/PATH [address] [place] [address] * (ABNORMAL) Immunoglobulin A (02/22/2019 2:17 PM EDT) IgA 547(H) 70 - 400 mg/dL [facility] Blood 02/22/2019 2:17 PM EDT 02/22/2019 2:18 PM EDT us Denny Kwon MD LAB BLOOD BKR ORDERABLES Fin al Result Performing Organization Address City/[facility]/ZIP Co de Phone Number [facility] 30 [place] [address] documented in this encounter Visit Diagnoses Diagnosis Low vitamin B12 level- Primary documented in this encounter Additional Health Concerns Assessment Noted Time PHQ-2 Depression Total Score: 0 03/25/20 18 9:17 AM EDT documented as of this encounter Care Teams Drafter Electromechanical Relationship Specialty Start Date End Date Charla Styles MD [address] [place] [address], [facility] 7 [place] [address] [email or web address] PCP - General 05/12/17 07/14/22 Andrew Mckee, CHULA [address] [place] [address] 7 [place] [address] PCP - General Family Medicine 07/15/22 11/01/24 Melissa Carrasco MD [address] [place] [address] PCP - General Internal Medicine 11/02/24 Sue Ackerman NP 1 [place] [address] Historical LMR Provider 05/17/17 2 Anupama Santiago DO [address] [place] [address] 7 [place] [address] Historical LMR Provider 05/17/17 Zoey Krishnan, CHULA [address] [place] [address] Historical LMR Provider 05/17/17 Nellie Griffiths FNP [address] [place] [address] 7 [place] [address] Historical LMR Provider 05/17/17 08/04/21 Alisha Chiu MD [address] [place] [address] [email or web address] Historical LMR Provider 05/17/17 Ernie Bland MD [address] [place] [address] 7 JEANNIE MONGE [phone] [email or web address] Historical LMR Provider 05/17/17 08/04/21 Noemi Heart, CHANG [address] [place] [address] Historical LMR Provider 05/17/17 2 Charla Styles MD [address] [place] [address] 7 [place] [address] [email or web address] Historical LMR Provider 05/17/17 Antolin Mora MD [address] [place] [address] JEANNIE MONGE [phone] Historical LMR Provider 05/17/17 2 Peterson Bland MD [address] [place], [place] [address] [place] [phone] [email or web address] Historical LMR Provider 05/17/17 08/04/21 Peterson Tipton MD [address] [place] [address] [email or web address] Historical LMR Provider 05/17/17 08/04/21 Charla Styles MD [address] [place] [address] 7 [place] [address] [email or web address] Insurance Assigned Provider 11/28/18 07/03/19 documented as of this encounter Additional Source Comments The information contained in this document represents components of the legal health record. It is not the complete legal health record.[facility]
--- OUTSIDE RECORDS SUMMARY | 2025-07-19 09:51 | XMS_ITS | Encounter Summary ---
Author Organization [facility] Address [address] [place] [address] Phone Care Team Providers Care Palliative Care Specialist Name Role Phone Anupama Santiago DO Unavailable Zoey Krishnan [facility] Unavailable [phone] Charla Styles MD Unavailable Andrew Mckee [facility] Primary Care Provider + Melissa Carrasco MD Primary Care Provider [phone] Encounter Details Date Type Department Care Team (Latest Contact Info) Description 08/12/2023 Transcribe Orders [facility] Phleb [place] [address] [place] [address] Nellie Santana PA-C [address], [address] [place] [address] UC (ulcerative colitis confined to rectum) (Primary Dx) Social History Tobacco Use Types [...] high school, GED, job training, learning the Ivorian language, technical skills, or developing parenting skills)? [...] documented as of this encounter Results * (ABNORMAL) C-Reactive Protein (08/12/2023 9:28 AM EST) C REACTIVE PROTEIN 6.8(H) 0.0 - 4.0 mg/L [facility] Blood 08/12/2023 9:28 AM EST 08/12/2023 9:33 AM EST us Nellie Santana PA-C LAB BLOOD BKR ORDERABLES Final Result [address] [address] * (ABNORMAL) Comprehensive metabolic panel (08/12/2023 9:28 AM EST) SODIUM 141 133 - 146 mmol/L [facility] POTASSIUM 4.0 3.3 - 5.1 mmol/L [facility] CHLORIDE 105 96 - 108 mmol/L [facility] CO2 23 21 - 35 mmol/L [facility] BUN 11 6 - 19 mg/dL [facility] CREATININE 0.70 0.5 - 1.5 mg/dL [facility] GLUCOSE 106(H) 70 - 99 mg/dL [facility] ALBUMIN 4.2 3.9 - 4.8 g/dL [facility] TOTAL PROTEIN 7.5 6.5 - 8.0 g/dL [facility] CALCIUM 9.9 8.4 - 10.3 mg/dL [facility] ALKALINE PHOSPHATASE 74 39 - 117 U/L [facility] TOTAL BILIRUBIN <0.2 0.0 - 1.2 mg/dL [facility] AST 30 0 - 37 U/L [facility] ALT 38 0 - 40 U/L [facility] GLOBULIN 3.3 1 - 4.8 g/dL [facility] EGFR 103 >59 mL/min/1.7 3m2 [facility] Comment:Estimated glomerular filtration rate calculated using the CKD-EPI refit equation. ANION GAP 17 10 - 20 mmol/L [facility] Blood 08/12/2023 9:28 AM EST 08/12/2023 9:33 AM EST us Nellie Santana PA-C LAB BLOOD BKR ORDERABLES Final Result [address] [address] * CBC (08/12/2023 9:28 AM EST) WBC 7.08 4.00 - 11.00 K/uL [facility] RBC 4.65 3.72 - 5.30 M/uL [facility] HGB 13.5 10.6 - 15.5 g/dL [facility] HCT 41.9 32.0 - 45.0 % [facility] PLT 379 140 - 430 K/uL [facility] MCV 90.1 78.0 - 97.0 fL [facility] MCH 29.0 25.0 - 33.0 pg [facility] MCHC 32.2 32.0 - 36.0 g/dL [facility] RDW 13.0 11.0 - 16.0 % [facility] MPV 10.8 8.4 - 12.8 fl [facility] Blood 08/12/2023 9:28 AM EST 08/12/2023 9:33 AM EST Nellie Santana PA-C LAB BLOOD BKR ORDERABLES Final Result [facility] 30 [place] [address] * (ABNORMAL) Serum protein electrophoresis W/O Immunoglobulins and Immunofixation (08/12/2023 9:28 AMEST) TOTAL PROTEIN 7.2 6.3 - 7.9 g/dL [facility] LAB [facility]/PATH [address] Albumin 3.4 3.4 - 4.7 g/dL [facility] DR Alpha-1 Globulin 0.2 0.1 - 0.3 g/dL [facility] DR Alpha-2 Globulin 1.1(H) 0.6 - 1.0 g/dL [facility] DR Beta-Globulin 1.6(H) 0.7 - 1.2 g/dL [facility]/[address] Gamma-Globulin 1.0 0.6 - 1.6 g/dL [facility] DR A/G Ratio 0.88 [facility] DR M spike Test component not applicable or not reported. g/dL [facility]/PATH [address] M spike Test component not applicable or not reported. g/dL [facility]/PATH [address] Impression SEE NOTE [facility] MED/PATH [address] Comment: (NOTE) The electrophoresis pattern has an elevated Beta-Globulin fraction. Suggest MPTS/M-protein Isotype MALDI-TOF MS, S if clinically indicated. Call [facility] within 7 days to add MPTS to the stored sample. Blood 08/12/2023 9:28 AM EST 08/12/2023 9:32 AM EST Nellie Santana PA-C LAB BLOOD BKR ORDERABLES Edited Result - Final Performing Organization Address City/[facility]/ZIP Co de Phone Number [facility] LAB MED/PATH [address] [place] [address] * Immunoglobulin G (08/12/2023 9:28 AM EST) IMMUNOGLOBULIN G 1,009 700 - 1,600 mg/dL [facility] Blood 08/12/2023 9:28 AM EST 08/12/2023 9:33 AM EST Nellie Santana PA-C LAB BLOOD BKR ORDERABLES Final Result Performing Organization Address [facility] Co de Phone Number [address] [address] * Liver kidney microsomal (LKM1) antibodies (08/12/2023 9:28 AM EST) LKM1 ANTIBODIES <5.0 <=20.0 (Negative) U [facility] LAB MED/PATH [address]IOR Blood 08/12/2023 9:28 AM EST 08/12/2023 9:32 AM EST Nellie Santana PA-C LAB BLOOD ORDERABLES Final Resu lt Performing Organization Address [facility] Co de Phone Number [facility] LAB MED/PATH [address] [place] [address] documented in this encounter Visit Diagnoses Diagnosis UC (ulcerative colitis confined to rectum)- Primary Ulcerative (chronic) proctitis documented in this encounter Additional Health Concerns Assessment Noted Time PHQ-2 Depression Total Score: 0 12/04/19 23 3:52 PM EDT documented as of this encounter Care Teams Palliative Care Specialist Relationship Specialty Start Date End Date Andrew Mckee CNP [address] [facility], [address] [place] [address] PCP - General Family Medicine 07/15/22 11/01/24 Melissa Carrasco MD [address] [place] [address] PCP - General Internal Medicine 11/02/24 Anupama Santiago DO [address] [place] [address], [facility] 7 [place] [address] [email or web address] Historical LMR Provider 05/17/17 Zoey Krishnan CNP [address] [place] [address], [facility] [place] [address] Historical LMR Provider 05/17/17 Charla Styles MD [address] [place] [address] 7 [place] [address] [email or web address] Historical LMR Provider 05/17/17 documented as of this encounter Additional Source Comments The information contained in this document represents components of the legal health record. It is not the complete legal health record.[facility]
--- OUTSIDE RECORDS SUMMARY | 2025-07-19 09:51 | XMS_ITS | Encounter Summary ---
Author Organization [facility] Address [address] [facility] [address] [place] [address] Phone Care Team Providers Care Bead Flipper Name Role Phone Charla Styles MD Primary Care Provider Sue Ackerman OSTEOPATHY DOCTOR Unavailable [phone] Anupama Santiago DO Unavailable Zoey Krishnan SLIP INJECTOR AND APPLICATOR Unavailable Nellie Griffiths PLASTICS FABRICATOR AND ASSEMBLER Unavailable Alisha Chiu MD Unavailable Ernie Bland MD Unavailable Noemi Heart OSTEOPATHY DOCTOR Unavailable [phone] Charla Styles MD Unavailable Antolin Mora MD Unavailable [phone] Peterson Bland MD Unavailable Peterson Tipton MD Unavailable [phone] Andrew Mckee SLIP INJECTOR AND APPLICATOR Primary Care Provider + Melissa Carrasco MD Primary Care Provider [phone] Encounter Details Date Type Department Care Team (Latest Contact Info) Description 08/23/2019 Transcribe Orders [facility] Phleb Main [address] [place], [place] [id number] Denny Kwon MD [address] [place] [address] [email or web address] Left sided ulcerative (chronic) colitis (Primary Dx) Social History Tobacco Use Types [...] documented as of this encounter Results * Vitamin B12 (08/23/2019 1:22 PM EST) VITAMIN B12 375 232 - 1,245 pg/mL [facility] Blood 08/23/2019 1:22 PM EST 08/23/2019 1:25 PM EST us Denny Kwon MD LAB BLOOD BKR ORDERABLES Fin al Result Performing Organization Address City/[facility] Co de Phone Number [address] [address] * Ferritin (08/23/2019 1:22 PM EST) FERRITIN 107 13 - 150 ug/L [facility] Blood 08/23/2019 1:22 PM EST 08/23/2019 1:25 PM EST us Denny Kwon MD LAB BLOOD BKR ORDERABLES Fin al Result Performing Organization Address [facility] Co de Phone Number [address] [address] * Iron and iron binding capacity (08/23/2019 1:22 PM EST) IRON 95 30 - 160 ug/dL [facility] IRON BINDING CAPACITY 307 228 - 428 ug/dL [facility] TRANSFERRIN SATURAT. 31 15 - 50 % [facility] Blood 08/23/2019 1:22 PM EST 08/23/2019 1:25 PM EST us Denny Kwon MD LAB BLOOD BKR ORDERABLES Fin al Result [address] [address] * C-Reactive Protein (08/23/2019 1:22 PM EST) C REACTIVE PROTEIN 1.4 0.0 - 4.0 mg/L [facility] Blood 08/23/2019 1:22 PM EST 08/23/2019 1:25 PM EST us Denny Kwon MD LAB BLOOD BKR ORDERABLES Fin al Result Performing Organization Address [facility] Co de Phone Number [address] [address] * (ABNORMAL) Comprehensive metabolic panel (08/23/2019 1:22 PM EST) Pathologist [facility] SODIUM 141 133 - 146 mmol/L [facility] POTASSIUM 3.9 3.3 - 5.1 mmol/L [facility] CHLORIDE 105 96 - 108 mmol/L [facility] CO2 17(L) 21 - 35 mmol/L [facility] BUN 10 6 - 19 mg/dL [facility] CREATININE 0.70 0.5 - 1.5 mg/dL [facility] GLUCOSE 57(L) 70 - 99 mg/dL [facility] ALBUMIN 4.2 3.9 - 4.8 g/dL [facility] TOTAL PROTEIN 7.7 6.5 - 8.0 g/dL [facility] CALCIUM 9.6 8.4 - 10.3 mg/dL [facility] ALKALINE PHOSPHATASE 55 39 - 117 U/L [facility] TOTAL BILIRUBIN 0.2 0.0 - 1.2 mg/dL [facility] AST 32 0 - 37 U/L [facility] ALT 35 0 - 40 U/L [facility] GLOBULIN 3.5 1 - 4.8 g/dL [facility] EGFR 102 >59 mL/min/1.7 3m2 [facility] Comment:If patient is black, multiply result by 1.159. Estimated glomerular filtration rate calculated using the CKD-EPI equation. ANION GAP 23(H) 10 - 20 mmol/L [facility] Blood 08/23/2019 1:22 PM EST 08/23/2019 1:25 PM EST us Denny Kwon MD LAB BLOOD BKR ORDERABLES Fin al Result Performing Organization Address City/[facility] Co de Phone Number [address] [address] * (ABNORMAL) CBC (08/23/2019 1:22 PM EST) WBC 9.39 3.40 - 11.20 K/uL [facility] RBC 4.50 3.80 - 4.80 M/uL [facility] HGB 13.2 12.0 - 15.0 g/dL [facility] HCT 37.8 36.0 - 46.0 % [facility] PLT 451(H) 130 - 400 K/uL [facility] MCV 84.0 79.0 - 98.0 fL [facility] MCH 29.3 27.0 - 34.8 pg [facility] MCHC 34.9 31.5 - 36.0 g/dL [facility] RDW 12.5 10.8 - 14.6 % [facility] MPV 11.0 9.4 - 12.4 [facility] NRBC 0.00 0.00 /100 WBCs [facility] ABSOLUTE NRBC 0.00 0.00 K/uL [facility] Blood 08/23/2019 1:22 PM EST 08/23/2019 1:25 PM EST us Denny Kwon MD LAB BLOOD BKR ORDERABLES Fin al Result Performing Organization Address [facility] Co de Phone Number [address] [address] documented in this encounter Visit Diagnoses Diagnosis Left sided ulcerative (chronic) colitis- Primary documented in this encounter Additional Health Concerns Assessment Noted Time PHQ-2 Depression Total Score: 0 03/25/20 18 9:17 AM EDT documented as of this encounter Care Teams Bead Flipper Relationship Specialty Start Date End Date Charla Styles MD [address] [place] [address] 7 [place] [address] [email or web address] PCP - General 05/12/17 07/14/22 Andrew Mckee, CHULA [address] [place] [address] PCP - General Family Medicine 07/15/22 11/01/24 Melissa Carrasco MD [address] [place] [address] PCP - General Internal Medicine 11/02/24 Sue Ackerman NP [address] [place] [address] Historical LMR Provider 05/17/17 2 Anupama Santiago DO [address] [place] [address] Historical LMR Provider 05/17/17 Zoey Krishnan CNP [address] [place] [address] Historical LMR Provider 05/17/17 Nellie Griffiths FNP [address] [place] [address] Historical LMR Provider 05/17/17 08/04/21 Alisha Chiu MD [address] [place] [address] [email or web address] Historical LMR Provider 05/17/17 Ernie Bland MD [address] [place] [address] 7 [place] [phone] [email or web address] Historical LMR Provider 05/17/17 08/04/21 Noemi Heart, CHANG [address] [place] [address] Historical LMR Provider 05/17/17 2 Charla Styles MD [address] [place] [address] 7 [place] [address] [email or web address] Historical LMR Provider 05/17/17 Antolin Mora MD [address] [place] [phone] Historical LMR Provider 05/17/17 2 Peterson Bland MD [address] [place] [address] [address] [place] [phone] [email or web address] Historical LMR Provider 05/17/17 08/04/21 Peterson Tipton MD [address] [place] [address] [email or web address] Historical LMR Provider 05/17/17 08/04/21 documented as of this encounter Additional Source Comments The information contained in this document represents components of the legal health record. It is not the complete legal health record.[facility]
--- OUTSIDE RECORDS SUMMARY | 2025-07-19 09:51 | XMS_ITS | Encounter Summary ---
Author Organization [facility] Address [address] [place] [address] Phone Care Team Providers Care Airport Sales Agent Name Role Phone Charla Styles MD Primary Care Provider [phone] Pamela Anupama Jacquie DO Unavailable [phone] Zoey Krishnan MONOTYPER Unavailable [phone] Charla Styles MD Unavailable [phone] Andrew Mckee [facility] Primary Care Provider + Melissa Carrasco MD Primary Care Provider [phone] Encounter Details Date Type Department Care Team (Late st Contact Info) Description 04/17/2022 Procedure Pass [facility], [address] [address] Social History Tobacco Use Types Packs/Day Years Used Date Smoking Tobacco: Never Smokeless Tobacco: Never Alcohol Use Standard Drinks/Week Comments Yes 0 (1 standard drink = 0.6 oz pur e alcohol) rarely Child or Family Care Answer Date Record ed Do you have problems with on e of the following making it difficult for you to work, study, or receive health care? No 03/26/2022 Education Answer Date Recorded Are you interested in help w ith more adult education (for example, completing high school, GED, job training, learning the Tanzanian language, technical skills, or developing parenting skills)? [...] basis, and looking for work? No 03/26/2022 Comments No Sex and Gender Information Value [...] Noted Time PHQ-2 Depression Total Score: 0 03/26/20 22 10:42 AM EDT documented as of this encounter Care Teams Airport Sales Agent Relationship Specialty Start Date End Date Charla Styles MD [address] [facility] 7 [place] [address] PCP - General 05/12/17 07/14/22 Andrew Mckee CNP [address] [facility], [facility] 7 [place] [address] PCP - General Family Medicine 07/15/22 11/01/24 Melissa Carrasco MD [address] [place] [phone] PCP - General Internal Medicine 11/02/24 Anupama Santiago DO [address] [place] [address] 7 [place] [address] Historical LMR Provider 05/17/17 Zoey Krishnan CNP [address] [place] [address] Historical LMR Provider 05/17/17 Charla Styles MD [address] [place] [address] 7 [place] [address] [email or web address] Historical LMR Provider 05/17/17 documented as of this encounter Additional Source Comments The information contained in this document represents components of the legal health record. It is not the complete legal health record.[facility]
--- OUTSIDE RECORDS SUMMARY | 2025-07-19 09:51 | XMS_ITS | Encounter Summary ---
Author Organization [facility] Address [address] [place] [address] Phone Care Team Providers Care Leadership Development Manager Name Role Phone Charla Styles MD Primary Care Provider Pamela Anupama Jacquie DO Unavailable [phone] Zoey Krishnan SERVICE SECRETARY Unavailable [phone] Charla Styles MD Unavailable [phone] Andrew Mckee SERVICE SECRETARY Primary Care Provider + Melissa Carrasco MD Primary Care Provider Encounter Details Date Type Department Care Team (Late st Contact Info) Description 03/27/2022 Procedure Pass [facility], [address] [id number] Social History Tobacco Use Types Packs/Day Years [...] high school, GED, job training, learning the Jamaican language, technical skills, or developing parenting skills)? [...] documented as of this encounter Care Teams Leadership Development Manager Relationship Specialty Start Date End Date Charla Styles MD [address] [facility] 7 [place] [address] PCP - General 05/12/17 07/14/22 Andrew Mckee CNP [address] [facility], [facility] 7 [place] [address] PCP - General Family Medicine 07/15/22 11/01/24 Melissa Carrasco MD [address] [place] [id number] PCP - General Internal Medicine 11/02/24 Anupama Santiago DO [address] [place] [address] 7 [place] [address] Historical LMR Provider 05/17/17 Zoey Krishnan CNP [address] [place] [address] Historical LMR Provider 05/17/17 Charla Styles MD [address] [place] [address] 7 [place] [address] [email or web address] Historical LMR Provider 05/17/17 documented as of this encounter Additional Source Comments The information contained in this document represents components of the legal health record. It is not the complete legal health record.[facility]
--- OUTSIDE RECORDS SUMMARY | 2025-07-19 09:51 | XMS_ITS | Clinical Summary ---
Author Organization [facility] Address [address] [facility] [address] [place] [address] Phone Care Team Providers Care Surgical Lead Name Role Phone Anupama Santiago DO Unavailable [phone] Zoey Krishnan FLAVORINGS COMPOUNDER Unavailable [phone] Charla Styles MD Unavailable [phone] Melissa Carrasco MD Primary Care Provider [phone] Allergies Active Allergy Reactions Criticality Noted Date Comments Amoxicillin Rash Low 10/28/2024 Clonazepam Other (See Comments) 12/26/2017 tired Lactose Low 12/26/2017 Medications adalimumab (HUMIRA) 40 mg/0.8 mL syringe kit 0.[address] Rojas 6 Active citalopram (CELEXA) 20 MG tablet Take 20 mg by mouth daily. Active acetaminophen (TYLENOL) 325 mg tablet Take 650 mg by mouth every 6 (six) hours as needed for mild pain. Active methylphenidate HCl (RITALIN) 5 MG tablet continuous prn. 0 Active triamcinolone acetonide 0.1 % ointment Apply topically 2 (two) times a day. 30 g 3 Active clobetasol (TEMOVATE) 0.05 % ointment APPLY TO AFFECTED AREA(S) TWO TIMES A DAY 15 g 4 Active Additional Information Patient not taking.Reported on 10/28/2024 levothyroxine (SYNTHROID, LEVOTHROID) 75 MCG tabletIndication s:Hypothyroidism , unspecified type TAKE ONE TABLET BY MOUTH EVERY MORNING 90 tablet 5 Active STELARA 90 mg/mL Syrg subcutaneous injection syringe Inject 90 mg under the skin once every 8 weeks. 5 Active Active Problems Problem Noted Date Diagnosed Date Bilateral impacted cerumen 11/18/2023 Assessment & Plan (11/18/2023 10:08 AM EDT): Ears flushed in office, she tolerated this well. No signs of acute infection or injury to TM. I did advise she use debrox or mineral oil in her ears weekly to help prevent wax buildup. She will try this at home. Left sided ulcerative colitis 02/10/2023 B12 deficiency 01/03/2023 Bed bug bite 01/03/2023 Assessment & Plan (01/03/2023 12:29 PM EDT): Bites consistent with bed bugs, image of bug she found consistent with bed bug appearance. Did discuss that so long as the bites she has do not become infected she does not need any specific treatment. Anti-itch medications for discomfort. Recommended to have a professional spacer type bar and segment come into the home to get rid of the bugs. We did discuss thorough cleaning of her entire home with high heat, chemicals, and air-tight containers. Abnormal mammogram 12/04/2022 Assessment & Plan (12/04/2022 10:35 AM EDT): Was advised to have 6 month follow up from diagnostic mammogram, order placed today. Numbness and tingling in left arm 12/04/2022 Assessment & Plan (12/04/2022 10:36 AM EDT): No obvious injury to area. Potentially nerve impingement. Given shoulder exercises to see if symptoms improve. She does say she recalls talking about a numb arm as a child as well. Follow up as needed. Other atopic dermatitis 12/04/2022 Assessment & Plan (12/04/2022 10:34 AM EDT): Likely eczema to her hands. Will try triamcinolone, advised to keep hands well hydrated with lotion. Follow up if no improvement. Dry mouth 12/04/2022 Assessment & Plan (12/04/2022 10:36 AM EDT): We discussed that aspartame in diet drinks can cause dry mouth. Advised to decrease diet drink and increase water intake. Hip pain 09/10/2022 Assessment & Plan (09/10/2022 11:04 AM EST): Tendonitis vs arthritis. Will do XR to assess for arthritis. Discussed supportive management with NSAIDS, heat, and gentle ROM. Offered PT, she declines at this time but will let the office know if she would like to try it later. Obstructive sleep apnea syndrome 10/05/2019 Autism 12/26/2017 Post-traumatic stress disorder 12/26/2017 Generalized anxiety disorder 12/26/2017 Overview (03/25/2018): Followed by Bette Villa APRN Hypothyroidism 12/18/2017 Ulcerative colitis 12/18/2017 Resolved Problems Problem Noted Date Diagnosed Date Resolved Date Thumb injury, right, initial encounter 01/18/2021 03/27/2022 Assessment & Plan (01/18/2021 5:22 PM EDT): Nesha presents with an injury to her right thumb. This happened at 1 PM yesterday with a screen cutter and trimmer. There is granulation tissue present thus I informed her that I cannot suture the site however I gave wound care guidance. There is no infection present but a Band-Aid with bacitracin was placed today with the wrap. I gave her a tetanus vaccine today as it has been over 5 years since her last vaccine. She will call if there is any other issues or concerns. She understands and agrees. Viral URI with cough 08/13/2018 021 Assessment & Plan (08/13/2018 9:59 AM EST): Nesha Zapata presents for a viral URI with a cough and she was advised to undergo symptomatic treatment reviewed in the office today. She will go for the above image study and I will update her with the results. she will call if this does not improve over the next week. she understands and agrees with this plan. Mixed anxiety and depressive disorder 12/18/2017 12/26/2017 Recurrent major depression 12/18/2017 0 12/26/2017 Immunizations Immunization Administration Dates Next Due INFLUENZA, SPLIT VIRUS, TRIV ALENT W/ PRESERVATIVE IM 04/10/2017 Influenza Quadrivalent Adjuv anted Preservative Free IM 04/26/2022 Influenza Quadrivalent MDCK Preservative Free IM 04/13/2020,04/27/2019 Influenza Quadrivalent Prese rvative Free IM 04/20/2021,04/13/2020,04/27/2019,03/25 Influenza trivalent preserva tive free intradermal 04/29/2014,04/09/2013 Pneumococcal conjugate PCV13 09/26/2015 Pneumococcal polysaccharide PPSV23 04/10/2017 Td (adult) 5 Lf Tetanus Toxo id, PF, Adsorbed 03/09/2002 Td (adult),2 Lf Tetanus Toxo id, PF, Adsorbed 01/18/2021 Tdap 2011 Zoster recombinant 02/20/2022,10/30/2021 Family History Medical History Relation Comments Esophageal cancer Father Hyperlipidemia Mother Breast cancer Paternal Aunt Relation Status Comments Father (Age 69) Mother Paternal Aunt Alive Social History Tobacco Use Types Packs/Day Years Used Date Smoking Tobacco: Never Smokeless Tobacco: Never Tobacco Cessation:Counseling Given: Not Answered Alcohol Use Standard Drinks/Week Comments Yes 0 [...] on file Sexual Orientation Not on file Last Filed Vital Signs Vital Sign Reading Time Taken Comments Blood Pressure 102/70 11/02/2024 9:45 AM EDT Pulse 82 11/02/2024 9:45 AM EDT Temperature 36.7 C (98.1 F) 11/18/2023 9:59 AM EDT Respiratory Rate 17 11/02/2024 9:45 AM EDT Oxygen Saturation 99% 11/02/2024 9:45 AM EDT Inhaled Oxygen Concentration - - Weight 89.8 kg (198 lb) 10/28/2024 1:44 PM EDT Height 157.5 cm (5' 2 ) 10/28/2024 1:44 PM EDT Body Mass Index 36.21 10/28/2024 1:44 PM EDT Plan of Treatment Health Maintenance Due Date Last Done Comments HIV ONE-TIME SCREENING (18-65 YEARS) 1987 COLOGUARD 2014 FIT TEST 2014 FOBT 2014 SIGMOIDOSCOPY 2014 VIRTUAL COLONOSCOPY 2014 RSV VACCINE (1 - Risk 50-74 years 1-dose series) 2019 PNEUMOCOCCAL VACCINES (50+ years) (3 of 3 - PCV20 or PCV21) 04/10/2022 04/10/2017, 09/26/2015 DEPRESSION SCREENING 12/04/2023 12/03/2022 INFLUENZA VACCINE (#1) 2025 , 05/01/2023, 04/26/2022, Additional history exists COVID-19 VACCINE ( season) 2025 05/02/2023, 05/10/2022, 11/23/2021, Additional history exists TSH LEVEL 10/25/2025 10/25/2024, 12/0 11/2022, 03/27/2022, Additional history exists MAMMOGRAM 06/03/2026 06/03/2024, 10/3 07/2022, 04/16/2022, Additional history exists SCREENING FOR DIABETES 08/12/2026 08/12/2023 LIPID PANEL 03/27/2027 03/27/2022, 04/09/2013 PAP SMEAR 03/27/2027 03/27/2022, 10/04/2015 COLONOSCOPY 11/06/2027 11/02/2024, 11/25, 02/01/2016 COLORECTAL CANCER SCREENING 11/06/2027 Adult Td,Tdap Booster 01/18/2031 01/18/2021 , 2011, 03/09/2002 ZOSTER VACCINES Completed 02/20/2022, 10/30/2021 HEPATITIS C SCREENING Completed 07/04/2023 , 07/04/2023, 03/27/2022 SMOKING STATUS SCREENING (Once After 26 Yrs) Completed 11/02/2024 HEPATITIS A VACCINES Aged Out No long er eligible based on patient's age to complete this topic HIB VACCINES Aged Out No longer eligi ble based on patient's age to complete this topic MENINGOCOCCAL VACCINES (ACWY) Aged Out No longer eligible based on patient's age to complete this topic MENINGOCOCCAL VACCINES (B) Aged Out N o longer eligible based on patient's age to complete this topic Medical Devices Not on file Procedures Procedure Name Priority Date/Time Associated Diagnosis Comments ENDOSCOPY, COLON 11/02/2024 9:11 AM EDT BI MAMMOGRAM DIAGNOSTIC WITH TOMOSYNTHESIS WITH CAD (BILATERAL) Routine 06/03/2024 9:45 AM EST Other abnormal and inconclusive findings on diagnostic imaging of breast HEPATITIS C ANTIBODY, QUALITATIVE Routine 07/04/2023 12:07 PM EST Elevated liver enzymes TSH WITH REFLEX Routine 07/01/2023 2:58 PM EST Hypothyroidism, unspecified type LIPID PANEL Routine 03/27/2022 10:43 AM EDT Annual physical exam PAP TEST Routine 03/27/2022 12:00 AM EDT from Last 3 Months or Most Recently Relevant to Health Maintenance Results * ENDOSCOPY, COLON (11/02/2024 9:11 AM EDT) Narrative Transcriptions Denny Rojas MD - 11/02/2024 9:11 AM EDT [facility] Patient Name: Nesha Benny Jamil MD:: DENNY ROJAS MD, Procedure Date: 11/02/2024 9:11 AM Date of : 1970 Age: 54 Admit Type: Outpatient Gender: Female Room: [facility] 04 Exam Type: Colonoscopy Indications: High risk colon cancer surveillance: Ulcerative pancolitis of 8 (or more) years duration Medications: Monitored Anesthesia Care Procedure: Informed consent was obtained from the patientafter discussion of the indications, limitations, alternatives, benefits, and risks of the procedure. Risks specifically discussed include but are not limited to medication reactions, missed lesions, bleeding, perforation, or the need for emergent surgery. Throughout the procedure, the patient's blood pressure, pulse, end-tidal CO2, and oxygensaturations were monitored continuously. The Olympus adult variable colonoscope CF-IS513P #2 was introduced through the anus and advanced to the cecum, identified by the appendiceal orifice. The colonoscopy was performed without difficulty. The patient tolerated the procedure well. The qualityof the bowel preparation was good. Anatomicallandmarks were photographed. Complications: No immediate complications. Estimated blood loss:None. Findings: The perianal and digital rectal examinations were normal. The rectum, recto-sigmoid colon, sigmoid colon, descending colon, splenic flexure, transversecolon, hepatic flexure, ascending colon, cecum,appendiceal orifice, ileocecal valve and rectum (onretroflexion) appeared normal. Biopsies were taken with a cold forceps for histology. A tattoo was seen in the transverse colon. A post-polypectomy scar was found at the tattoo site. There was no evidence of residual polyp tissue. Impression: - The rectum (on retroflexion), rectum, sigmoidcolon, descending colon, splenic flexure, transversecolon, hepatic flexure, ascending colon, cecum,recto-sigmoid colon, ileocecal valve and appendiceal orifice are normal. Biopsied. - A tattoo was seen in the transverse colon. A post-polypectomy scar was found at the tattoo site. There was no evidence of residual polyp tissue. Recommendation: - Discharge patient to home. - Resume previous diet. - Continue present medications. - Await pathology results. - Repeat colonoscopy in 3 years for surveillance. - Your colonoscopy was normal with no polyps or colitis. - I will send you pathology results by letter. Ifyou do not get results in 3 weeks telephone darshana. DENNY ROJAS MD 11/02/2024 9:37:11 AM This report has been signed electronically. Number of Addenda: 0 Note Initiated On: 11/02/2024 9:11 AM Procedure Code(s): --- Professional --- 69685, Colonoscopy, flexible; with biopsy, single or multiple --- Technical --- 27043, Colonoscopy, flexible; with biopsy, single or multiple Diagnosis Code(s): --- Professional --- K51.00, Ulcerative (chronic) pancolitis without complications --- Technical --- K51.00, Ulcerative (chronic) pancolitis without complications CPT copyright 2021 [employer]. All rights reserved. The codes documented in this report are preliminary and upon carbon sequestration plant operator reviewmay be revised to meet current compliance requirements. Procedure Date: 11/02/2024 9:11:[address] [place] [address] us Unknown Unknown GI PROCEDURE ORDERABLES Final Result * BI MAMMOGRAM DIAGNOSTIC WITH TOMOSYNTHESIS WITH CAD (BILATERAL) (06/03/2024 9:45 AM EST) Anatomical Region Laterality Modality Breast Left, Breast Right, Breast Bilateral Bila teral Mammography 06/03/2024 9:48 AM EST Impressions 06/03/2024 10:17 AM EST 1. Benign findings on the right. No mammographic evidence of malignancy in the right breast. 2. No mammographic evidence of malignancy in the left breast. BI-RADS 2 BENIGN Results and recommendations were communicated to the patient at time of examination. Narrative 06/03/2024 10:17 AM EST BI MAMMOGRAM DIAGNOSTIC WITH TOMOSYNTHESIS WITH CAD (BILATERAL) Additional patient information: Follow-up of right breast calcifications. COMPARISON: Comparison is made with prior mammograms dating back to April 2022. Breast composition: The breast tissue is heterogeneously dense which may obscure small masses. FINDINGS: Right Mammogram: Previously seen amorphous, grouped calcifications in the inferior right breast are stable, there has been no interval change in 2 years and calcifications are now considered benign. There are no new or suspicious findings in the right breast. Left Mammogram: No abnormal masses, suspicious calcifications, or other significant findings are identified mammographically in the left breast. There is no change since previous examination. Procedure Note Megan Montano MD - 06/03/2024 BI MAMMOGRAM DIAGNOSTIC WITH TOMOSYNTHESIS WITH CAD (BILATERAL) Additional patient information: Follow-up of right breast calcifications. COMPARISON: Comparison is made with prior mammograms dating back toO2021. Breast composition: The breast tissue is heterogeneously dense which mayobscure small masses. FINDINGS: Right Mammogram: Previously seen amorphous, grouped calcifications in the inferior rightbreast are stable, there has been no interval change in 2 years andcalcifications are now considered benign. There are no new or suspiciousfindings in the right breast. Left Mammogram: No abnormal masses, suspicious calcifications, or other significantfindings are identified mammographically in the left breast. There is nochange since previous examination. IMPRESSION: 1. Benign findings on the right. No mammographic evidence of malignancyin the right breast. 2. No mammographic evidence of malignancy in the left breast. BI-RADS 2 BENIGN Results and recommendations were communicated to the patient at time ofexamination. Provider Not In System PhD IMG MG EXAMS Final Result * Hepatitis C antibody, qualitative (07/04/2023 12:07 PM EST) HCV NON-REACTIV E NON-REACTI VE [facility] Blood 07/04/2023 12:0 7 PM EST 07/04/2023 12:13 PM EST Nellie Santana PA-C LAB BLOOD BKR ORDERABLES Final Result [address] [address] * TSH with reflex (07/01/2023 2:58 PM EST) TSH 2.60 0.27 - 4.20 uIU/mL [facility] Blood 07/01/2023 2:58 PM EST 07/01/2023 3:10 PM EST us Mark Estrada DO LAB BLOOD BKR ORDERABLES Final R esult Performing Organization Address [facility] Co de Phone Number [address] [address] * (ABNORMAL) Lipid panel (03/27/2022 10:43 AM EDT) HDL 62 mg/dL [facility] Comment: Interpretation <40 mg/dL: Low HDL cholesterol (major risk factor for CHD) Greater than or equal to 60 mg/dL: High HDL cholesterol ( negative risk factor for CHD) HDL - cholesterol is affected by a number of factors, e.g. smoking, excerise, hormones, sex and age. CHOLESTEROL 169 0 - 240 mg/dL [facility] TRIGLYCERIDES 59 30 - 160 mg/dL [facility] LDL 95 50 - 129 mg/dL [facility] Comment: LDL levels in terms of risk for coronary heart disease: <100 mg/dL: Optimal 100-129 mg/dL: Near or above optimal 130-159 mg/dL: Borderline high 160-189 mg/dL: High >190 mg/dL: Very High CARDIAC RISK RATIO 2.7(L) 3.3 - 4.4 C [facility] Blood 03/27/2022 10:4 3 AM EDT 03/27/2022 10:45 AM EDT us Charla Styles MD LAB BLOOD BKR ORDERABLES Dottie l Result Performing Organization Address City/[facility]/ZIP Co de Phone Number [address] [address] * Pap Smear (03/27/2022 12:00 AM EDT) 03/27/2022 03/28/2022 9:1 2 AM EDT Narrative SEE NARRATIVE - 03/29/2022 2:42 PM EDT [address] [address] Judge'S Clerk: Marily Maher MD KIT PLANNER Cytology Report FINAL DIAGNOSIS A. PAP SMEAR (SUREPATH) CE: SPECIMEN ADEQUACY: Satisfactory for evaluation; transformation zone absent/insufficient. INTERPRETATION: NEGATIVE FOR INTRAEPITHELIAL LESION OR MALIGNANCY. Electronically Signed Out By: EVERETTE Morales(ASCP) The Pap test is a screening test primarily for squamous cancers and precursors and has associated false-negative and false-positive results. New technologies such as liquid-based preparations may decrease but will not eliminate all false-negative results. Regular sampling and follow-up of unexplained clinical signs and symptoms are recommended to minimize false negative results. PROCEDURES/ADDENDA HPV Testing (Requested) Ordered Date: 03/28/2022 A. PAP SMEAR (SUREPATH) CE: Human Papilloma Virus Test Negative for high-risk human papillomavirus types 16, 18, 45 and the Other high risk probe set (Includes 31, 33, 35, 39, 51, 52, 56, 58, 59, 66, 68) by [employer] HR-HPV analysis. Clinical correlation is advised. This HPV test was performed at [facility], [address] [place] [address]. This test has been FDA approved for SurePath cervical cytology specimens. The accuracy and precision of this test for all other specimen sources has been verified in the Cytopathology Laboratory of the [facility] and has not been cleared or approved by the U.S. Food and Drug Administration. Clinical correlation is advised. CLINICAL HISTORY Date of Last Menstrual Period: 02-08-2022 Menstrual History: Ana-Menopausal Other Clinical Conditions: Screening Pap SPECIMEN SOURCE A: PAP SMEAR (SUREPATH) CE Patient Name: NESHA ZAPATA : 1970 (Age: 51) Sex: F Institution: [facility] Location: [facility] Date of Collection: 03/27/2022 Date of Reported: 03/29/2022 11:22 Results to: Charla Styles MD, BA Charla Styles MD CYTOLOGY ORDERABLES Edited Re sult - Final SEE NARRATIVE from Last 3 Months or Most Recently Relevant to Health Maintenance Insurance [facility] Member Subscriber Plan / Payer (Ef fective 2019-Present) Name:Nesha Zapata Relation to Subscriber:Self Name:Zapata, Mary Payer ID:Not on file Type:HMO Address: [place] [id number] [facility] Care Teams Surgical Lead Relationship Specialty Start Date End Date Melissa Carrasco MD [address] [place] [address] PCP - General Internal Medicine 11/02/24 Anupama Santiago DO [address] [place] [address] [address] [place] [address] [email or web address] Historical LMR Provider 05/17/17 Zoey Krishnan CNP [address] [place] [address], [address] [place] [id number] Historical LMR Provider 05/17/17 Charla Styles MD [address] [place] [address] [address] [place] [address] [email or web address] Historical LMR Provider 05/17/17 Additional Source Comments The information contained in this document represents components of the legal health record. It is not the complete legal health record.[facility]
--- OUTSIDE RECORDS SUMMARY | 2025-07-19 09:51 | XMS_ITS | Encounter Summary ---
Author Organization [facility] Address [address] [place] [address] [place] [address] Phone Care Team Providers Care Aviation Project Engineer Name Role Phone Charla Styles MD Primary Care Provider Sue Ackerman EAR MUFF ASSEMBLER Unavailable [phone] Anupama Santiago DO Unavailable Zoey Krishnan OUTSOLE SKIVER Unavailable Nellie Griffiths SOCIAL DIRECTOR Unavailable Alisha Chiu MD Unavailable Ernie Bland MD Unavailable [phone] Noemi Heart EAR MUFF ASSEMBLER Unavailable Charla Styles MD Unavailable [phone] Antolin Mora MD Unavailable [phone] Peterson Bland MD Unavailable [phone] Peterson Tipton MD Unavailable Andrew Mckee OUTSOLE SKIVER Primary Care Provider + Melissa Carrasco MD Primary Care Provider Encounter Details Date Type Department Care Team (Late st Contact Info) Description 12/12/2020 Procedure Pass [facility] Endoscopy Admitting Dept Virtual Department [address] [place] [address] Social History Tobacco Use Types Packs/Day Years [...] documented as of this encounter Care Teams Aviation Project Engineer Relationship Specialty Start Date End Date Charla Styles MD [address] [place] [address] PCP - General 05/12/17 07/14/22 Andrew Mckee CNP [address] [place] [address] PCP - General Family Medicine 07/15/22 11/01/24 Melissa Carrasco MD [address] [place] [address] PCP - General Internal Medicine 11/02/24 Sue Ackerman NP [address] [place] [address] Historical LMR Provider 05/17/17 2 Anupama Santiago DO [address] [place] [address] Historical LMR Provider 05/17/17 Zoey Krishnan CNP [address] [address] [email or web address] Historical LMR Provider 05/17/17 Nellie Griffiths FNP [address] [place] [address] [address] [place] [address] [email or web address] Historical LMR Provider 05/17/17 08/04/21 Alisha Chiu MD [address] [place] [address] [email or web address] Historical LMR Provider 05/17/17 Ernie Bland MD [address] [place] [phone] [email or web address] Historical LMR Provider 05/17/17 08/04/21 Noemi Heart NP [address] [place] [address] Historical LMR Provider 05/17/17 2 Charla Styles MD [address] [place] [address] 7 [place] [address] [email or web address] Historical LMR Provider 05/17/17 Antolin Mora MD [address] [place] [address] [place] [address] Historical LMR Provider 05/17/17 2 Peterson Bland MD [address] [place], [place] [address] [place] [phone] [email or web address] Historical LMR Provider 05/17/17 08/04/21 Peterson Tipton MD [address] [place] [address] [email or web address] Historical LMR Provider 05/17/17 08/04/21 documented as of this encounter Additional Source Comments The information contained in this document represents components of the legal health record. It is not the complete legal health record.[facility]
--- OUTSIDE RECORDS SUMMARY | 2025-07-19 09:51 | XMS_ITS | Encounter Summary ---
Author Organization [facility] Address [address] [place] [address] Phone Care Team Providers Care Pill Machine Operator Name Role Phone Anupama Santiago DO Unavailable Zoey Krishnan BOILER TENDERS SUPERVISOR Unavailable Charla Styles MD Unavailable [phone] Andrew Mckee [facility] Primary Care Provider + Melissa Carrasco MD Primary Care Provider [phone] Encounter Details Date Type Department Care Team (Late st Contact Info) Description 04/21/2024 Procedure Pass [facility] Endoscopy Admitting Dept Virtual Department [address] [place], [place] [id number] Social History Tobacco Use Types Packs/Day Years [...] documented as of this encounter Care Teams Pill Machine Operator Relationship Specialty Start Date End Date Andrew Mckee CNP [address] [place] [address], [facility] 7 [place] [address] PCP - General Family Medicine 07/15/22 11/01/24 Melissa Carrasco MD [address] [place] [address] PCP - General Internal Medicine 11/02/24 Anupama Santiago DO [address] [place] [address] 7 [place] [address] [email or web address] Historical LMR Provider 05/17/17 Zoey Krishnan CNP 15 [facility], [address] [place] [id number] [email or web address] Historical LMR Provider 05/17/17 Charla Styles MD [address] [place] [address] 7 [place] [address] [email or web address] Historical LMR Provider 05/17/17 documented as of this encounter Additional Source Comments The information contained in this document represents components of the legal health record. It is not the complete legal health record.[facility]
--- OUTSIDE RECORDS SUMMARY | 2025-07-19 09:51 | XMS_ITS | Encounter Summary ---
Author Organization [facility] Address [address] [place] [address] [place] [address] Phone Care Team Providers Care Spray Gun Sizer Name Role Phone Charla Styles MD Primary Care Provider Sue A[place] LOOM OPERATOR APPRENTICE Unavailable Anupama Santiago DO Unavailable Zoey Krishnan HOME HOUSEKEEPER Unavailable Nellie Griffiths SLUDGE FILTRATION OPERATOR Unavailable Alisha Chiu MD Unavailable Ernie Bland MD Unavailable Noemi Heart LOOM OPERATOR APPRENTICE Unavailable Charla Styles MD Unavailable Antolin Mora MD Unavailable Peterson Bland MD Unavailable Peterson Tipton MD Unavailable Andrew Mckee HOME HOUSEKEEPER Primary Care Provider + Melissa Carrasco MD Primary Care Provider Encounter Details Date Type Department Care Team (Late st Contact Info) Description 10/12/2019 Procedure Pass [facility] Endoscopy Admitting Dept Virtual Department [address] [place] [address] Social History Tobacco Use Types [...] documented as of this encounter Care Teams Spray Gun Sizer Relationship Specialty Start Date End Date Charla Styles MD [address] [place] [address] 7 [place] [address] [email or web address] PCP - General 05/12/17 07/14/22 Andrew Mckee, [facility]UL[facility] [address] [place] [address] 7 [place] [address] PCP - General Family Medicine 07/15/22 11/01/24 Melissa Carrasco MD [address] [place] [address] PCP - General Internal Medicine 11/02/24 Sue Ackerman NP 1 [place] [address] Historical LMR Provider 05/17/17 2 Anupama Santiago DO [address] [place] [address] 7 [place] [address] Historical LMR Provider 05/17/17 Zoey Krishnan CNP [address] [facility], 2nd [place] [address] [email or web address] Historical LMR Provider 05/17/17 Nellie Griffiths FNP [address] [place] [address] 7 [place], [place] [phone] [email or web address] Historical LMR Provider 05/17/17 08/04/21 Alisha Chiu MD [address] [place] [address], [address] [place] [address] [email or web address] Historical LMR Provider 05/17/17 Ernie Bland MD [address] [place] [phone] [email or web address] Historical LMR Provider 05/17/17 08/04/21 Noemi Heart NP [address] [place] [address] Historical LMR Provider 05/17/17 2 Charla Styles MD [address] [place] [address] 7 [place] [address] [email or web address] Historical LMR Provider 05/17/17 Antolin Mora MD [address] [place] [phone] Historical LMR Provider 05/17/17 2 Peterson Bland MD [address] [place], [place] [address] [phone] [email or web address] Historical LMR Provider 05/17/17 08/04/21 Peterson Tipton MD [address] [place] [address] [email or web address] Historical LMR Provider 05/17/17 08/04/21 documented as of this encounter Additional Source Comments The information contained in this document represents components of the legal health record. It is not the complete legal health record.[facility]
[2025-07-19 11:36] LABS: Alanine Aminotransferase 45 U/L (0-31); Albumin Level 4.4 g/dL (3.5-5.0); Alkaline Phosphatase 67 U/L (39-117); Aspartate Amino Transferase 30 U/L (5-31); Total Protein 7.2 g/dL (6.5-8.0)
[2025-07-19 12:39] LABS: Free T4 (Free Thyroxine) 0.87 ng/dL (0.71-1.85)
== END 2025-07-19 09:14 | disposition home or self-care (01) ==
LOC: HO.HMGCLDS 09:13
PROVIDERS: PCP Internal Medicine; Visit Provider Internal Medicine
DX: R74.8 Abnormal levels of other serum enzymes (principal); E03.9 Hypothyroidism, unspecified
CPT/HCPCS: 36415; 80076; 84439; 84443